=== PATIENT | female | born 1965 | race Caucasian/White ===

== ENCOUNTER → 2021-03-15 | Outpatient (CLI) | payer OTHER, SELFPAY ==
[2021-03-15 17:38] VITALS: BMI 24.7
== END | disposition home or self-care (01) ==
PROVIDERS: Visit Provider Nurse Practitioner
DX: N30.01 Acute cystitis with hematuria (principal)
CPT/HCPCS: 87086

== ENCOUNTER → 2022-05-17 | Outpatient (CLI) | payer OTHER, SELFPAY ==
[2022-05-17 22:13] LABS: Absolute Lymphocyte Count 2.16 X10^3/uL (0.83-4.51); Absolute Neutrophil Count 3.9 X10^3/uL (2.0-7.7); Basophil# 0.06 X10^3/uL; Basophil% 0.9 % (0-1); Eosinophil# 0.16 X10^3/uL; Eosinophils% 2.4 % (0-5); Hematocrit 38.7 % (37-47); Hemoglobin 12.9 g/dL (12.0-15.0); Lymphocyte # 2.16 X10^3/ul (0.83-4.51); Lymphocyte % 32.2 % (19-41); Mean Corp Hgb Conc 33.3 g/dL (32-36); Mean Corpuscular Hgb 29.5 pg (27.0-32.0); Mean Corpuscular Volume 88.6 fL (81-99); Mean Platelet Vol. 9.2 fl (6.2-12.0); Monocyte# 0.43 X10^3/uL; Monocyte% 6.4 % (0-10); NRBC Flagged by Analyzer 0 % (0-5); Neutrophil # 3.88 X10^3/uL (2.7-7.7); Platelet Count 254 K/mm3 (150-450); RBC Distribution Width CV 12.1 % (11.6-14.6); RBC Distribution Width SD 39.7 fl (35.1-43.9); Red Blood Count 4.37 M/mm3 (4.2-5.4); White Blood Count 6.7 K/mm3 (4.4-11.0)
[2022-05-17 22:33] LABS: Glucose 93 mg/dL (74-106)
[2022-05-17 22:34] LABS: ALB/GLOB Ratio 1.2 RATIO (0.9-2.4); AST(SGOT) 19 U/L (15-37); Alanine Aminotransfer ALT/SGPT 30 U/L (13-56); Albumin, Serum 3.9 g/dL (3.2-5.0); Alkaline Phosphatase 58 U/L (45-117); Anion Gap 6 (5-15); BUN 20 mg/dL (7-18); BUN/Creat Ratio 23.3 RATIO (10-20); Calcium,Total 8.9 mg/dL (8.5-10.1); Chloride 107 mmol/L (98-107); Cholesterol 190 mg/dL (200); Creatinine, Serum 0.86 mg/dL (0.55-1.02); EST Glomerular Filtration Rate 73 mL/min (>60); Est Glom Filt Rate - Afr Amer 88 mL/min (>60); Globulin 3.2 g/dL (2.2-4.2); High Density Lipoprotein 64 mg/dL; Potassium 4.8 mmol/L (3.5-5.1); Protein, Total 7.1 g/dL (6.4-8.2); Sodium Level 141 mmol/L (136-145); Thyroid Stim Hormone (TSH) 1.25 uIU/mL (0.358-3.74); Triglycerides 69 mg/dL; Very Low Density Lipoprotein 14 mg/dL (5-40)
[2022-05-19 22:18] LABS: EBV Acute VCA IgM < 36.0 U/mL (0.0-35.9); EBV Nuclear Antigen IgG 51.2 U/mL (0.0-17.9)
== END | disposition home or self-care (01) ==
PROVIDERS: PCP Nurse Practitioner; Referring Provider Nurse Practitioner; Visit Provider Nurse Practitioner
DX: R53.83 Other fatigue (principal); D64.9 Anemia, unspecified; E78.00 Pure hypercholesterolemia, unspecified; R41.840 Attention and concentration deficit
CPT/HCPCS: 80053; 80061; 84443; 85025; 86664; 86665

== ENCOUNTER → 2025-10-09 | Outpatient (CLI) | payer OTHER, SELFPAY ==
--- OUTSIDE RECORDS SUMMARY | 2025-10-09 22:45 | XMS RPT_ITS | CCD ---
Author Organization [facility] Care Team Providers Care Teen Counselor Name Role Phone Shayna Catalan Y Unavailable Shayna Catalan Y Unavailable Tim Catalania Y Unavailable Tim Catalania Y Unavailable Mandy AMBROSE, Laura Gray Unavailable Unavailable Unavailable Primary Care Provider UnavailViktoriya Seaman Unavailable Unavailable Zurdo 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Meliton BENNETT Primary Care Provide r Zurdo 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eMliton BENNETT Primary Care Provide r Stephen Madrigal MD Unavailable Zurdo 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Meliton BENNETT Primary Care Provide r SADIE ENRIQUEZ Attending UnavailMELITON Sandoval Primary Care Unavailable SADIE ENRIQUEZ Referring MELITON Espinoza Primary Care Unavailable Allergies Allergy Classification Reported Allergen(s) Allergy Type Date of Onset Reaction(s) Facility (6 sources) penicillin drug allergy 03-19-2017 [facility] Work Phone: (4 sources) Penicillins; Translations: [PENICILLINS] Drug Allergy 03-19-2017 Unknown, [facility] Work Phone: (8 sources) Penicillins Drug Allergy 03-19-2017 Unknown, [facility] Work Phone: (2 sources) Penicillins Drug Allergy 03-19-2017 Unknown, [facility] Work Phone: Medications Current Medications Medication Drug Class(es) Dates Sig (Normalized) Sig (Original) ASHWAGANDHA ROOT EXTRACT ORAL (13 sources) take 350 mg by mouth twice daily ASHWAGANDHA ROOT EXTRACT ORAL Take 350 mg by mouth twice daily. Active take 350 mg by mouth twice daily ASHWAGANDHA ROOT EXTRACT ORAL Take 350 mg by mouth twice daily. 0 Active Comment on above: Take 350 mg by mouth twice daily. beta-carotene,A,-vits C and E (ANTI-OXIDANT ORAL) (13 sources) take 1 tablet by mouth twice daily beta-carotene,A,-vit s C and E (ANTI-OXIDANT ORAL) Take 1 tablet by mouth twice daily. Active take 1 tablet by mouth twice terrance ly beta-carotene,A,-vits C and E (ANTI-OXIDANT ORAL) Take 1 tablet by mouth twice daily. 0 Active Comment on above: Take 1 tablet by frank twice daily. calcium carb/mag oxide/C/beta (CALCIUM COMPLETE ORAL) (13 sources) calcium carb/mag oxide/C/beta (CALCIUM COMPLETE ORAL) Take 1 capsule by mouth twice daily. 2.5 mcg vit d,250 mg calcium,50 mg magnesium Active calcium carb/mag oxide/C/beta (CALCIUM COMPLETE ORAL) Take 1 capsule by mouth twice daily. 2.5 mcg vit d,250 mg calcium,50 mg magnesium 0 Active Comment on above: Take 1 capsule by mo [facility] twice daily. 2.5 mcg vit d,250 mg calcium,50 mg magnesium cholecalciferol, vitamin D3, (VITAMIN D3 ORAL) (13 sources) take 2000 [IU] by mouth once daily cholecalciferol, vitamin D3, (VITAMIN D3 ORAL) Take 2,000 Units by mouth once daily. Active take 2000 [IU] by mouth once terrance ly cholecalciferol, vitamin D3, (VITAMIN D3 ORAL) Take 2,000 Units by mouth once daily. 0 Active Comment on above: Take 2,000 Units by mouth once daily. COMPOUNDED PRESCRIPTION (20 sources) COMPOUNDED PRESC RIPTION Biest 0.6mg/0.5mL cream. Apply 0.6 mL twice daily Active COMPOUNDED PRESC RIPTION Progesterone 50 mg/mL cream. Apply 0.6 mL nightly Active COMPOUNDED PRESC RIPTION Biest 0.6mg/0.5mL cream. Apply 0.6 mL twice daily 0 Active COMPOUNDED PRESC RIPTION Progesterone 50 mg/mL cream. Apply 0.6 mL nightly 0 Active Comment on above: Biest 0.6mg/0.5mL cr eam. Apply 0.6 mL twice daily Progesterone 50 mg/m L cream. Apply 0.6 mL nightly evening primrose oil (EVENING PRIMROSE ORAL) (13 sources) take 1300 mg by mouth once daily evening primrose oil (EVENING PRIMROSE ORAL) Take 1,300 mg by mouth once daily. Active take 1300 mg by mouth once daily evening primrose oil (EVENING PRIMROSE ORAL) Take 1,300 mg by mouth once daily. 0 Active Comment on above: Take 1,300 mg by frank th once daily. hydroCHLOROthiazide 25 mg oral tablet (7 sources) Thiazide Diuretic Start: 2021 take 1 tablet by mouth once daily hydroCHLOROthiazide (HYDRODIURIL, ESIDRIX) 25 mg tablet Indications: Hypercalciuria Take 1 tablet by mouth once daily. 30 tablet 11 05/05/2022 Active Comment on above: Take 1 tablet by frank th once daily. hydrOXYzine hydrochloride 10 mg oral tablet (13 sources) Antihistamine Start: 2020 hydrOXYzine HCl (ATARAX) 10 mg tablet Take by mouth four times daily as needed for anxiety. 3-4 times daily 12/23/2020 Active Comment on above: Take by mouth four t imes daily as needed for anxiety. 3-4 times daily iv contrast (will be provided with radiology test) (9 sources) Start: 2023 iv contrast (will be provided with radiology test) Indications: Pancreas cyst (HCC) MRI PANC/BRET Inject, intravenously, once for 1 dose. No IV access, insert saline lock prior to the beginning of sedation, infusion, injection of imaging exam. Discontinue saline lock post exam. If Pt. has a central line or IVAD, may access for administration according to line specific nursing protocol. Once exam is complete flush line and de-access according to line specific nursing protocol in the MR contrast administration guidelines link. 1 Each 10/30/2023 Active Start: 10-30-2023 iv contrast (w ill be provided with radiology test) Indications: Pancreas cyst MRI PANC/BRET Inject, intravenously, once for 1 dose. No IV access, insert saline lock prior to the beginning of sedation, infusion, injection of imaging exam. Discontinue saline lock post exam. If Pt. has a central line or IVAD, may access for administration according to line specific nursing protocol. Once exam is complete flush line and de-access according to line specific nursing protocol in the MR contrast administration guidelines link. 1 Each 10/30/2023 Active Start: 10-15-2023 iv contrast (w ill be provided with radiology test) Indications: Pancreas cyst (HCC) MRI PANC/BRET Inject, intravenously, once for 1 dose. No IV access, insert saline lock prior to the beginning of sedation, infusion, injection of imaging exam. Discontinue saline lock post exam. If Pt. has a central line or IVAD, may access for administration according to line specific nursing protocol. Once exam is complete flush line and de-access according to line specific nursing protocol in the MR contrast administration guidelines link. 1 Each 10/15/2023 Active Start: 10-15-2023 iv contrast (w ill be provided with radiology test) Indications: Pancreas cyst MRI PANC/BRET Inject, intravenously, once for 1 dose. No IV access, insert saline lock prior to the beginning of sedation, infusion, injection of imaging exam. Discontinue saline lock post exam. If Pt. has a central line or IVAD, may access for administration according to line specific nursing protocol. Once exam is complete flush line and de-access according to line specific nursing protocol in the MR contrast administration guidelines link. 1 Each 10/15/2023 Active Start: 10-15-2023 iv contrast (w ill be provided with radiology test) Indications: Pancreas cyst MRI PANC/BRET Inject, intravenously, once for 1 dose. No IV access, insert saline lock prior to the beginning of sedation, infusion, injection of imaging exam. Discontinue saline lock post exam. If Pt. has a central line or IVAD, may access for administration according to line specific nursing protocol. Once exam is complete flush line and de-access according to line specific nursing protocol in the MR contrast administration guidelines link. 1 Each 0 10/15/2023 Active Comment on above: MRI PANC/BRET Inject, intravenously, once for 1 dose. No IV access, insert saline lock prior to the beginning of sedation, infusion, injection of imaging exam. Discontinue saline lock post exam. If Pt. has a central line or IVAD, may access for administration according to line specific nursing protocol. Once exam is complete flush line and de-access according to line specific nursing protocol in the MR contrast administration guidelines link. lactobacillus acidophilus [id number] unt oral capsule (13 sources) take 1 capsule by mouth once daily Lactobacillus acidophilus 10 billion cell cap Take 1 capsule by mouth once daily. Active Comment on above: Take 1 capsule by mo [facility] once daily. MEDICATION, NON-DATABASE (13 sources) take 250 mg by mouth once daily MEDICATION, NON-DATABASE Take 250 mg by mouth once daily. provex -plus grape seed extract,gingko biloba Active take 250 mg by mouth once daily MEDICATION, NON-DATABASE Take 250 mg by mouth once daily. provex -plus grape seed extract,gingko biloba 0 Active Comment on above: Take 250 mg by mouth once daily. provex -plus grape seed extract,gingko biloba MULTI-VITAMIN ORAL (13 sources) take 1 tablet by mouth twice daily MULTI-VITAMIN ORAL Take 1 tablet by mouth twice daily. Active take 1 tablet by mouth twice terrance ly MULTI-VITAMIN ORAL Take 1 tablet by mouth twice daily. 0 Active Comment on above: Take 1 tablet by frank th twice daily. OMEGA 0-KUC-RWM-FISH OIL ORAL (13 sources) take 2 capsules by mouth twice daily OMEGA 1-QPL-KAE-FISH OIL ORAL Take 2 capsules by mouth twice daily. 660 DHA and 720 EPA Active take 2 capsules by mouth twice d aily OMEGA 7-RIH-TVF-FISH OIL ORAL Take 2 capsules by mouth twice daily. 660 DHA and 720 EPA 0 Active Comment on above: Take 2 capsules by [facility] twice daily. 660 DHA and 720 EPA oxybutynin chloride 5 mg oral tablet (9 sources) Cholinergic Muscarinic Antagonist Start: 05-19-20 21 take 1 tablet by mouth every eight hours as needed oxybutynin (DITROPAN) 5 mg tablet Take 1 tablet by mouth three times daily as needed (bladder spasms) for up to 14 days. 42 tablet 05/19/2021 5:28 PM EDT 05/19/2021 Active Comment on above: Take 1 tablet by frank th three times daily as needed (bladder spasms) for up to 14 days. phenazopyridine hydrochloride 200 mg oral tablet (7 sources) Start: 04-27-20 22 take 1 tablet by mouth every eight hours as needed phenazopyridine (PYRIDIUM) 200 mg tablet Take 1 tablet by mouth three times daily as needed. 9 tablet 04/27/2022 Active Comment on above: Take 1 tablet by frank th three times daily as needed. prasterone, DHEA, (DHEA ORAL) (13 sources) prasterone, DHEA , (DHEA ORAL) Dissolve 5 mg under the tongue once daily. One half tab Active prasterone, DHEA , (DHEA ORAL) Dissolve 5 mg under the tongue once daily. One half tab 0 Active Comment on above: Dissolve 5 mg under the tongue once daily. One half tab tamsulosin hydrochloride 0.4 mg oral capsule (12 sources) alpha-Adrenergic Leyla Start: take 1 capsule by mouth once daily at bedtime tamsulosin (FLOMAX) 0.4 mg Take 1 capsule by mouth daily at bedtime. 14 capsule 04/27/2022 Active Start: 04-07-2021 take 1 capsule by mo uth once daily tamsulosin (FLOMAX) 0.4 mg Indications: Kidney stone Take 1 capsule by mouth once daily. 30 capsule 2 04/07/2021 Active Comment on above: Take 1 capsule by mo uth once daily. Take 1 capsule by mo uth daily at bedtime. vitamin b complex capsule (6 sources) take 1 capsule by mouth once daily vitamin b complex capsule Take 1 capsule by mouth once daily. Methyl B complex Active take 1 capsule by mouth once terrance ly vitamin b complex capsule Take 1 capsule by mouth once daily. Methyl B complex 0 Active Comment on above: Take 1 capsule by mo uth once daily. Methyl B complex Completed/Discontinued Medications Medication Drug Class(es) Dates Sig (Normalized) Sig (Original) bi-est (estriol 80% estradiol 20%)/ progesterone 1.25-50 mg/mL topical cream (CPD) (5 sources) Start: 03-19-2017 bi-est (estriol 80% estradiol 20%)/ progesterone 1.25-50 mg/mL topical cream (CPD) BIEST/PROGESTERONE CREA as directed ESTRADIOL-ESTRIOL- PROGESTERONE [id number] Laura Galvan RN 0 03/19/2017 Active Comment on above: BIEST/PROGESTERONE C ESTIVEN as directed [id number] Laura Galvan RN escitalopram 5 mg oral tablet (5 sources) Serotonin Reuptake Inhibitor take 0.25 tablet by mouth once daily escitalopram oxalate (ESCITALOPRAM) 5 mg tablet Take 5 mg by mouth once daily. 11/01 tab lexapro 0 Active Comment on above: Take 5 mg by mouth o nce daily. 11/01 tab lexapro [id number] GESTERONE (5 sources) Start: 03-19-2017 BIEST/PROGESTERONE CREA as directed ESTRADIOL-ESTRIOL- PROGESTERONE [id number] Laura Galvan RN [id number] GESTERONE (1 source) Start: 03-19-2017 BIEST/PROGESTERONE CREA as directed ESTRADIOL-ESTRIOL- PROGESTERONE [id number] Laura Galvan RN levETIRAcetam 500 mg oral tablet (3 sources) Start: 07-30-2018 take 1 tablet by mouth twice daily levETIRAcetam (KEPPRA) 500 mg tablet Take 1 tablet by mouth twice daily for 6 days. 11 tablet 0 07/30/2018 Active Comment on above: Take 1 tablet by frank th twice daily for 6 days. nortriptyline 25 mg oral capsule (3 sources) Tricyclic Antidepressant Start: 01-14-2019 take 1 capsule by mouth once daily at bedtime nortriptyline (PAMELOR) 25 mg capsule Take 1 capsule by mouth daily at bedtime. 30 capsule 3 01/14/2019 Active Comment on above: Take 1 capsule by mo uth daily at bedtime. progesterone (4 sources) Progesterone Start: 03-21-2017 EC-RX PROGESTERONE 10 % CREA 25 mg/0.5 ml topically as directed PROGESTERONE MICRONIZED [id number] Tim Santamaria MD sulfamethoxazole 800 mg / trimethoprim 160 mg oral tablet (10 sources) Dihydrofolate Reductase Inhibitor Antibacterial, Sulfonamide Antimicrobial Start: 03-15-2021 sulfamethoxazole-t rimethoprim (BACTRIM DS,SEPTRA DS) 800-160 mg per tablet Take by mouth. 0 03/15/2021 Active Start: 03-15-2021 take 1 tablet by frank th twice daily sulfamethoxazole-trimethoprim (BACTRIM DS,SEPTRA DS) 800-160 mg per tablet TAKE 1 TABLET BY MOUTH TWICE A DAY FOR 10 DAYS FOR HEMATURIA 0 03/15/2021 Active Comment on above: Take by mouth. TAKE 1 TABLET BY FRANK TH TWICE A DAY FOR 10 DAYS FOR HEMATURIA vitamin b complex (VITAMINS B COMPLEX) capsule (7 sources) take 1 capsule by mouth once daily vitamin b complex (VITAMINS B COMPLEX) capsule Take 1 capsule by mouth once daily. Methyl B complex 0 Active Comment on above: Take 1 capsule by mo uth once daily. 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] 10-15-2023 Chronic Delirium, dementia, and amnestic and other cognitive disorders (13 sources) Postconcussion syndrome; Translations: [Postconcussional syndrome] Onset: 01-17-2019 01-17-2019 Chronic Pancreatic disorders (not diabetes) (15 sources) Cyst of pancreas; Translations: [Cyst of pancreas] 01-09-2019 Episodic Past or Other Problems Problem Classification Problem Date Documented Date Episodic/Chronic Calculus of urinary tract (20 sources) Kidney stone; Translations: [Calculus of kidney] Onset: 05-25-2021 10-10-2021 Episodic Cardiac dysrhythmias (6 sources) Palpitations; Translations: [Palpitations] Onset: 03-19-2017 03-19-2017 Episodic Conditions associated with dizziness or vertigo (13 sources) Dizziness; Translations: [Dizziness and giddiness] Onset: 01-17-2019 01-17-2019 Episodic Genitourinary symptoms and ill-defined conditions (20 sources) Hypercalciuria; Translations: [Hypercalciuria] Onset: 10-10-2021 10-10-2021 Episodic Headache; including migraine (13 sources) Headache; Translations: [Post-traumatic headache, unspecified, not intractable] Onset: 01-17-2019 01-17-2019 Episodic Intracranial injury (13 sources) Traumatic subarachnoid hemorrhage with loss of consciousness; Translations: [Traumatic subarachnoid hemorrhage with loss of consciousness of 30 minutes or less, initial encounter] Onset: 07-30-2018 07-30-2018 Episodic Nonspecific chest pain (6 sources) Chest pain; Translations: [Chest pain, unspecified] Onset: 03-19-2017 03-19-2017 Episodic Other injuries and conditions due to external causes (13 sources) Traumatic injury; Translations: [Injury, unspecified, initial encounter] Onset: 07-29-2018 07-30-2018 Episodic Other nervous system disorders (13 sources) Disorganized thinking; Translations: [Other symptoms and signs involving cognitive functions and awareness] Onset: 01-17-2019 01-17-2019 Episodic Results Test Name Value Interpretation Reference Range Facility [facility] 04-03-2025 CNOV Office Visit (AKURFL ) -- DIMITRI MOREAU V ([id number]) 1965 F Date Time Provider Department 04/03/25 9:00 AM SADIE ENRIQUEZ During your visit today, we recorded the following information about you: Pulse Height 67/minute 1.626 m Sadie Enriquez MD 04/03/2025 1:40 PM Signed ESTABLISHED PATIENT OFFICE VISIT PATIENT INFO: Dimitri Moreau 59 year old HPI 04/03/2025 CC: Stone Presents with and no feeling of passing stones since I saw her and no flank pain Urine today negative and KUB may be stable stone lower pole left kidney Denies gross hematuria or dysuria After discussion she just wants to follow-up 2 years with KUB Past Urology Hx: 11/05/2023 CC: stone Dipstick urine negative today and she has not felt like passing stones since I saw her last Presents with her KUB shows suspected presence of 4 mm lower pole stone but CT in 2018 showed that also She is satisfied just follow-up 12 months with KUB and she pushes her lemonade ;; 11/06/2022 CC: stone Drink a lot of lemon juice and decided not to start hydrochlorothiazide which we reviewed once again Dipstick urine negative KUB May be punctate lower pole left renal stone She is comfortable just checking KUB in 12 months and does indicate she will get periodic MRI for other issues to be once every year and a half now 05/05/2022 CC: stone Stent not as bothersome as it was last time Status post laser lithotripsy of right ureteral calculus and presents for stent removal today Once again discussed history of elevated urine calcium on Litholink and stone analysis showed calcium oxalate and calcium phosphate mixed stone She just wants the prescription for the hydrochlorothiazide and will decide whether she wants to start it Printed out oxalate food list and stone precaution list She just wants KUB 6 months 04/10/2022 CC: stone Patient has not been doing the lemon and once again talked about her 24-hour urine study results showing Elevated urine calcium and oxalate Presents with her today 3 weeks ago some pink urine but just wants and no flank pain whatsoever KUB shows calcification along the course of mid right ureter so possibility ureteral stone She is getting MRI in [place] next week to follow her pancreas issue like we knew before and she will call when she does that so we can check results She understands she might still need CT scan Might need ureteroscopy and laser and stent on the right Once again discussed hydrochlorothiazide options 10/10/2021 CC: stone Months with her and she did her KUB which does not show any significant stone growth Urine today is negative Litholink study shows elevated urine calcium and oxalate but citrate levels normal Suggested starting hydrochlorothiazide given her history She is not interested in hydrochlorothiazide at all and will push lemonade rather than Urocit-K Discuss KUB in 6 months but she indicates she gets MRI every year and will be getting one in February so she will do that before sees me and order in for KUB to get one if she decides 06/06/2021 CC: stone Presents for cystoscopy and stent removal x2 today Status post bilateral ureteroscopy and staged procedure for her upper tract stones proved to be calcium phosphate mostly Stents have been troublesome for the patient and hard for her to sit too long and lots of urine frequency Denies fevers or chills Stents removed today She will get Litholink study and KUB prior to seeing me in 7 weeks April 28, 2021-telephone call by me to patient- P: cysto, bilat ureteroscopy, laser, stents, possible ESWL then cysto, bilat ureteroscopy, laser, stents 1 week later and can be HW 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 Ramsey- 56 year old female who presents refer for kidney stone. Had routine mri for pancreatic cyst. Incidentally found to have 8mm L UPJ calc with hydro and 1.0 cm r renal pelvis calc. Never had stones before. Asymptomatic other than microhematuria. 04/26/21 - ct shows 8mm L UPJ calc. 16mm r renal pelvis calc. Other small bilateral renal calc. Options discussed. 1500+ HU's RADS: April 01, [id number] of stool and bowel gas and maybe 3-4 mm calcification more per area left kidney October 17, 2023-MRI pancreas-possibility 2 mm calcification upper pole right kidney area or could just be volume averaging artifact October 17, 2023-KUB-suspect 4.6 mm lower pole left renal calculus November 01, [id number] left renal calculus over lower pole May 05, 2022-cystoscopy, stent removal April 27, 2022-stone analysis-60% calcium oxalate and 40% calcium phosphate April 27, 2022-right ureteroscopy with laser and stent April 19, 2022-MRI abdomen-new mild right sided hydronephrosis March 29 (more content not included)... Normal [facility] UA DIP, URINE (POC)on 2024 BILIRUBIN UA (POCT) Negative Negative [facility] CLARITY UA (POCT) Clear [facility] COLOR UA (POCT) Yellow [facility] GLUCOSE UA (POCT) Negative Negative mg/dL [facility] Hemoglobin Ql (U) Negative Negative [facility] KETONE UA (POCT) Negative Negative mg/dL [facility] LEUKOCYTES UA (POCT) Negative Negative [facility] NITRITE UA (POCT) Negative Negative [facility] PH UA (POCT) 7.5 4.5 - 8.0 [facility] Protein Ql (U) Negative Negative mg/dL [facility] SPECIFIC GRAVITY UA (POCT) 1.01 1.005 - 1.030 [facility] UROBILINOGEN UA (POCT) 0.2 Normal E.U./dL [facility] Location:[facility], [address] [place] [address], [address] [place] [address] POINT OF CARE [facility] XR ABDOMEN 1V SUPINEon 04-01 XR ABDOMEN 1V SUPINE * * *Final Report* * * DATE OF EXAM: Apr 01 2025 3:53PM LDX 5289 - XR ABDOMEN 1V SUPINE / PROCEDURE REASON: Kidney stone * * * * Physician Interpretation * * * * EXAMINATION: ABDOMINAL RADIOGRAPH Clinical History: Kidney stone M: XC1_4 Comparison: 10/17/2023 TECHNIQUE: Single view(s) of the abdomen RESULT: Lines, tubes, and devices: None are seen. Bowel Gas Pattern: Large amount of stool seen in the colon. No small bowel obstruction seen Calcifications: 4 mm calcific density lower pole region of left kidney. Other: No additional findings IMPRESSION: Left renal stone Claim Analyst: LINDA Transcribe Date/Time: Apr 04 2025 6:39A Dictated by : JOSE ANGEL MUÑOZ MD This examination was interpreted and the report reviewed and electronically signed by: JOSE ANGEL MUÑOZ MD on Apr 04 2025 6:40AM EST [id number] Normal [facility] CNPNon 12-08-2024 CNPN Telephone (UROLAE) -- DIMITRI MOREAU V ([id number]) 1965 F Date Time Provider Department 12/08/24 SADIE ENRIQUEZ During your visit today, we recorded the following information about you: Allergies As of Date: 12/08/2024 Noted Allergy Reaction PENICILLINS 03/19/2017 16 - Unknown 2 - Rash Date Reviewed: 11/05/2023 Reviewed by: Sadie Enriquez MD - Fully Assessed Primary Visit Diagnosis:Kidney stone [N20.0] Order(s):XR ABDOMEN 1V SUPINE [[id number]] Order #: [id number] FUTURE Prescriptions as of 12/08/2024 - iv contrast (will be provided with radiology test) MRI PANC/BRET Inject, intravenously, once for 1 dose. No IV access, insert saline lock prior to the beginning of sedation, infusion, injection of imaging exam. Discontinue saline lock post exam. If Pt. has a central line or IVAD, may access for administration according to line specific nursing protocol. Once exam is complete flush line and de-access according to line specific nursing protocol in the MR contrast administration guidelines link. - iv contrast (will be provided with radiology test) MRI PANC/BRET Inject, intravenously, once for 1 dose. No IV access, insert saline lock prior to the beginning of sedation, infusion, injection of imaging exam. Discontinue saline lock post exam. If Pt. has a central line or IVAD, may access for administration according to line specific nursing protocol. Once exam is complete flush line and de-access according to line specific nursing protocol in the MR contrast administration guidelines link. - hydroCHLOROthiazide (HYDRODIURIL, ESIDRIX) 25 mg tablet Take 1 tablet by mouth once daily. - tamsulosin (FLOMAX) 0.4 mg Take 1 capsule by mouth daily at bedtime. - phenazopyridine (PYRIDIUM) 200 mg tablet Take 1 tablet by mouth three times daily as needed. - MEDICATION, NON-DATABASE Take 250 mg by mouth once daily. provex -plus grape seed extract,gingko biloba - oxybutynin (DITROPAN) 5 mg tablet Take 1 tablet by mouth three times daily as needed (bladder spasms) for up to 14 days. - cholecalciferol, vitamin D3, (VITAMIN D3 ORAL) Take 2,000 Units by mouth once daily. - vitamin b complex capsule Take 1 capsule by mouth once daily. Methyl B complex - ASHWAGANDHA ROOT EXTRACT ORAL Take 350 mg by mouth twice daily. - hydrOXYzine HCl (ATARAX) 10 mg tablet Take by mouth four times daily as needed for anxiety. 3-4 times daily - calcium carb/mag oxide/C/beta (CALCIUM COMPLETE ORAL) Take 1 capsule by mouth twice daily. 2.5 mcg vit d,250 mg calcium,50 mg magnesium - evening primrose oil (EVENING PRIMROSE ORAL) Take 1,300 mg by mouth once daily. - OMEGA 4-HRS-WUY-FISH OIL ORAL Take 2 capsules by mouth twice daily. 660 DHA and 720 EPA - MULTI-VITAMIN ORAL Take 1 tablet by mouth twice daily. - Lactobacillus acidophilus 10 billion cell cap Take 1 capsule by mouth once daily. - beta-carotene,A,-vits C and E (ANTI-OXIDANT ORAL) Take 1 tablet by mouth twice daily. - prasterone, DHEA, (DHEA ORAL) Dissolve 5 mg under the tongue once daily. One half tab - COMPOUNDED PRESCRIPTION Biest 0.6mg/0.5mL cream. Apply 0.6 mL twice daily - COMPOUNDED PRESCRIPTION Progesterone 50 mg/mL cream. 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 Telephone ([id number]) -- DIMITRI MOREAU V ([id number]) 1965 F Date Time Provider Department 09/15/24 CHARISMA GUO3 During your visit today, we recorded the following information about you: Halie Rodney LPN 09/15/2024 10:58 AM Signed Called patient, no answer, left VM to call office to go over upcoming MRI appointment and schedule follow up with Charisma Guo PA-C or Dr. Morrell. Halie Pennintgon LPN, LPN 09/24/2024 9:36 AM Signed Called patient, no answer, left VM to call office to go over MRI and follow up appointment. Mailed appointment information to patient. Dorys Caballero LPN 09/24/2024 1:13 PM Signed Patient called back in cancelled her appointments, per patients she was told at last OV that she did not need to come back for 18 months and does not wish to get anything done at this time, would rather wait till next year. Patient asked to be scheduled in March of 2025. Informed patient I would talk to provider and call if anything changes and they want her in sooner. Lina Allergies As of Date: 09/15/2024 Noted Allergy Reaction PENICILLINS 03/19/2017 16 - Unknown 2 - Rash Date Reviewed: 11/05/2023 Reviewed by: Sadie Enriquez MD - Fully Assessed Reason for Visit: Appointment [[id number]] Prescriptions as of 09/24/2024 - iv contrast (will be provided with radiology test) MRI PANC/BRET Inject, intravenously, once for 1 dose. No IV access, insert saline lock prior to the beginning of sedation, infusion, injection of imaging exam. Discontinue saline lock post exam. If Pt. has a central line or IVAD, may access for administration according to line specific nursing protocol. Once exam is complete flush line and de-access according to line specific nursing protocol in the MR contrast administration guidelines link. - iv contrast (will be provided with radiology test) MRI PANC/BRET Inject, intravenously, once for 1 dose. No IV access, insert saline lock prior to the beginning of sedation, infusion, injection of imaging exam. Discontinue saline lock post exam. If Pt. has a central line or IVAD, may access for administration according to line specific nursing protocol. Once exam is complete flush line and de-access according to line specific nursing protocol in the MR contrast administration guidelines link. - hydroCHLOROthiazide (HYDRODIURIL, ESIDRIX) 25 mg tablet Take 1 tablet by mouth once daily. - tamsulosin (FLOMAX) 0.4 mg Take 1 capsule by mouth daily at bedtime. - phenazopyridine (PYRIDIUM) 200 mg tablet Take 1 tablet by mouth three times daily as needed. - MEDICATION, NON-DATABASE Take 250 mg by mouth once daily. provex -plus grape seed extract,gingko biloba - oxybutynin (DITROPAN) 5 mg tablet Take 1 tablet by mouth three times daily as needed (bladder spasms) for up to 14 days. - cholecalciferol, vitamin D3, (VITAMIN D3 ORAL) Take 2,000 Units by mouth once daily. - vitamin b complex capsule Take 1 capsule by mouth once daily. Methyl B complex - ASHWAGANDHA ROOT EXTRACT ORAL Take 350 mg by mouth twice daily. - hydrOXYzine HCl (ATARAX) 10 mg tablet Take by mouth four times daily as needed for anxiety. 3-4 times daily - calcium carb/mag oxide/C/beta (CALCIUM COMPLETE ORAL) Take 1 capsule by mouth twice daily. 2.5 mcg vit d,250 mg calcium,50 mg magnesium - evening primrose oil (EVENING PRIMROSE ORAL) Take 1,300 mg by mouth once daily. - OMEGA 7-VAC-SQG-FISH OIL ORAL Take 2 capsules by mouth twice daily. 660 DHA and 720 EPA - MULTI-VITAMIN ORAL Take 1 tablet by mouth twice daily. - Lactobacillus acidophilus 10 billion cell cap Take 1 capsule by mouth once daily. - beta-carotene,A,-vits C and E (ANTI-OXIDANT ORAL) Take 1 tablet by mouth twice daily. - prasterone, DHEA, (DHEA ORAL) Dissolve 5 mg under the tongue once daily. One half tab - COMPOUNDED PRESCRIPTION Biest 0.6mg/0.5mL cream. Apply 0.6 mL twice daily - COMPOUNDED PRESCRIPTION Progesterone 50 mg/mL cream. 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] 10/10/2021 Hyperoxaluria [R82.992] 10/10/2021 Encounter Status:Closed by HALIE RODNEY on 09/24/24 Normal [facility] UA DIP, URINE (POC)on 2022 BILIRUBIN UA (POCT) Negative Negative [facility] CLARITY UA (POCT) [facility] COLOR UA (POCT) Yellow [facility] GLUCOSE UA (POCT) Negative Negative mg/dL [facility] HEMOGLOBIN/BLOOD UA (POCT) Negative Negative [facility] KETONE UA (POCT) Negative Negative mg/dL [facility] LEUKOCYTES UA (POCT) Negative Negative [facility] NITRITE UA (POCT) Negative Negative [facility] PH UA (POCT) 7.5 4.5 - 8.0 [facility] Protein Ql (U) Negative Negative mg/dL [facility] SPECIFIC GRAVITY UA (POCT) 1.015 1.005 - 1.030 [facility] UROBILINOGEN UA (POCT) 0.2 E.U./dL Normal E.U./dL [facility] EBV Acute Prof IgG / IgMon 0 - EB Ab VCA, IgG 57.0 U/mL High 0.0-17.9 [facility] Comment on above: Result Comment: Nega tive <18.0 Equivocal 18.0 - 21.9 Positive >21.9 Performed By: #### L 501.9520, L3100.5850, L500.4050, L100.0100, L500.4100 #### [facility] [address] [place], [place], [id number] EBV Ab VCA, IgM < 36.0 Normal 0.0-35.9 [facility] Comment on above: Result Comment: Nega tive <36.0 Equivocal 36.0 - 43.9 Positive >43.9 Performed By: #### L 501.9520, L3100.5850, L500.4050, L100.0100, L500.4100 #### [facility] [address] [place], [place], [id number] EBV NuAg Ab,IgG 51.2 U/mL High 0.0-17.9 [facility] Comment on above: Result Comment: Nega tive <18.0 Equivocal 18.0 - 21.9 Positive >21.9 Performed By: #### L 501.9520, L3100.5850, L500.4050, L100.0100, L500.4100 #### [facility] [address] [place], [place], [id number] INTERPRETATION Comment Normal . [facility] Comment on above: Result Comment: EBV Interpretation Chart Mckeon: Antibody Present + Antibody Absent - Interpretation VCA-IgM VCA-IgG EBNA-IgG No previous infection/ - - - Susceptible Primary infection (new + + - or recent) Past Infection +or- + + See comment below* + - - *Results indicate infection with EBV at some time however cannot predict the timing of the infection since antibodies to EBNA usually develop after primary infection or, alternatively, approximately 5-10% of patients with EBV never develop antibodies to EBNA. Performed at: [address] [id number] Dental Therapist: Moe Ayala PhD, Phone: [phone] Performed By: #### L 501.9520, L3100.5850, L500.4050, L100.0100, L500.4100 #### [facility] [address] [facility], [address] CBC W/Diff, Automatedon 07-2 -2021 Absolute Lymph 2.16 X10 3/uL Normal 0.83-4.51 [facility] Comment on above: Performed By: #### L 501.9520, L3100.5850, L500.4050, L100.0100, L500.4100 #### [facility] [address] [place], [address] Absolute Neut 3.9 X10 3/uL Normal 2.0-7.7 [facility] Comment on above: Performed By: #### L 501.9520, L3100.5850, L500.4050, L100.0100, L500.4100 #### [facility] [address] [place], [address] Basophils/100 WBC (Bld) 0.9 % Normal 0-1 [facility] Comment on above: Performed By: #### L 501.9520, L3100.5850, L500.4050, L100.0100, L500.4100 #### [facility] [address] [place], [address] Eosinophils/100 WBC (Bld) 2.4 % Normal 0-5 [facility] Comment on above: Performed By: #### L 501.9520, L3100.5850, L500.4050, L100.0100, L500.4100 #### [facility] [address] [place], [address] Erythrocyte distribution width (RBC) [Ratio] 12.1 % Normal 11.6-14.6 [facility] Comment on above: Performed By: #### L 501.9520, L3100.5850, L500.4050, L100.0100, L500.4100 #### [facility] [address] [place], [address] Hematocrit (Bld) [Volume fraction] 38.7 % Normal 37-47 [facility] Comment on above: Performed By: #### L 501.9520, L3100.5850, L500.4050, L100.0100, L500.4100 #### [facility] [address] [place], [address] Hemoglobin (Bld) [Mass/Vol] 12.9 g/dL Normal 12.0-15.0 [facility] Comment on above: Performed By: #### L 501.9520, L3100.5850, L500.4050, L100.0100, L500.4100 #### [facility] [address] [place], [address] IG% 0.100 Normal 0.0-0.9 [facility] Comment on above: Result Comment: IG% - Immature Granulocytes (promyelocytes, myelocytes and metamyelocytes) > 1% indicates that a LEFT SHIFT is Present. Performed By: #### L 501.9520, L3100.5850, L500.4050, L100.0100, L500.4100 #### [facility] [address] [place], [address] Lymphocytes/100 WBC (Bld) 32.2 % Normal 19-41 [facility] Comment on above: Performed By: #### L 501.9520, L3100.5850, L500.4050, L100.0100, L500.4100 #### [facility] [address] [place], [address] MCH (RBC) [Entitic mass] 29.5 pg Normal 27.0-32.0 [facility] Comment on above: Performed By: #### L 501.9520, L3100.5850, L500.4050, L100.0100, L500.4100 #### [facility] [address] [place], [address] MCHC (RBC) [Mass/Vol] 33.3 g/dL Normal 32-36 [facility] Comment on above: Performed By: #### L 501.9520, L3100.5850, L500.4050, L100.0100, L500.4100 #### [facility] [address] [place], [address] MCV (RBC) [Entitic vol] 88.6 fL Normal 81-99 [facility] Comment on above: Performed By: #### L 501.9520, L3100.5850, L500.4050, L100.0100, L500.4100 #### [facility] [address] [place], [address] Monocytes/100 WBC (Bld) 6.4 % Normal 0-10 [facility] Comment on above: Performed By: #### L 501.9520, L3100.5850, L500.4050, L100.0100, L500.4100 #### [facility] [address] [place], [address] Neutrophils/100 WBC (Bld) 58.0 % Normal 47-70 [facility] Comment on above: Performed By: #### L 501.9520, L3100.5850, L500.4050, L100.0100, L500.4100 #### [facility] [address] [place] [place], [address] Nucleated RBC (Bld) [#/Vol] 0 10*3/uL Normal 0-5 [facility] Comment on above: Performed By: #### L 501.9520, L3100.5850, L500.4050, L100.0100, L500.4100 #### [facility] [address] [place], [address] Platelet mean volume (Bld) [Entitic vol] 9.2 fL Normal 6.2-12.0 [facility] Comment on above: Performed By: #### L 501.9520, L3100.5850, L500.4050, L100.0100, L500.4100 #### [facility] [address] [place], [address] Platelets (Bld) [#/Vol] 254 10*3/uL Normal 150-450 [facility] Comment on above: Performed By: #### L 501.9520, L3100.5850, L500.4050, L100.0100, L500.4100 #### [facility] [address] [place], [address] RBC (Bld) [#/Vol] 4.37 10*6/uL Normal 4.2-5.4 [facility] Comment on above: Performed By: #### L 501.9520, L3100.5850, L500.4050, L100.0100, L500.4100 #### [facility] [address] [place], [address] RDW SD 39.7 fl Normal 35.1-43.9 [facility] Comment on above: Performed By: #### L 501.9520, L3100.5850, L500.4050, L100.0100, L500.4100 #### [facility] [address] [place], [address] WBC (Bld) [#/Vol] 6.7 10*3/uL Normal 4.4-11.0 [facility] Comment on above: Performed By: #### L 501.9520, L3100.5850, L500.4050, L100.0100, L500.4100 #### [facility] [address] [place], [address] Comprehensive Metabolic Prof [facility] 05-18-2022 Albumin [Mass/Vol] 3.9 g/dL Normal 3.2-5.0 [facility] Comment on above: Performed By: #### L 501.9520, L3100.5850, L500.4050, L100.0100, L500.4100 #### [facility] [address] [place], [address] Albumin/Globulin [Mass ratio] 1.2 {ratio} Normal 0.9-2.4 [facility] Comment on above: Performed By: #### L 501.9520, L3100.5850, L500.4050, L100.0100, L500.4100 #### [facility] [address] [place], [address] ALK P 58 U/L Normal 45-117 [facility] Comment on above: Performed By: #### L 501.9520, L3100.5850, L500.4050, L100.0100, L500.4100 #### [facility] [address] [place], [address] ALT [Catalytic activity/Vol] 30 U/L Normal 13-56 [facility] Comment on above: Performed By: #### L 501.9520, L3100.5850, L500.4050, L100.0100, L500.4100 #### [facility] [address] [place], [address] AST [Catalytic activity/Vol] 19 U/L Normal 15-37 [facility] Comment on above: Performed By: #### L 501.9520, L3100.5850, L500.4050, L100.0100, L500.4100 #### [facility] [address] [place], [address] Bilirubin [Mass/Vol] 0.60 mg/dL Normal 0.20-1.00 [facility] Comment on above: Result Comment: For patients on eltrombopag therapy, use of Dimension [place] TBIL is not recommended. Performed By: #### L 501.9520, L3100.5850, L500.4050, L100.0100, L500.4100 #### [facility] [address] [place], [address] BUN/CRE 23.3 RATIO High 10-20 [facility] Comment on above: Performed By: #### L 501.9520, L3100.5850, L500.4050, L100.0100, L500.4100 #### [facility] [address] [place], [address] CA,Total 8.9 mg/dL Normal 8.5-10.1 [facility] Comment on above: Performed By: #### L 501.9520, L3100.5850, L500.4050, L100.0100, L500.4100 #### [facility] [address] [place], [address] Chloride [Moles/Vol] 107 mmol/L Normal 98-107 [facility] Comment on above: Performed By: #### L 501.9520, L3100.5850, L500.4050, L100.0100, L500.4100 #### [facility] [address] [place], [address] CO2 [Moles/Vol] 28.0 mmol/L Normal 21.0-32.0 [facility] Comment on above: Performed By: #### L 501.9520, L3100.5850, L500.4050, L100.0100, L500.4100 #### [facility] [address] [place], [address] Creatinine [Mass/Vol] 0.86 mg/dL Normal 0.55-1.02 [facility] Comment on above: Result Comment: The validity of the calculated GFR GFRAA in patients over 70 years has not been determined. Clinical correlation is essential. Performed By: #### L 501.9520, L3100.5850, L500.4050, L100.0100, L500.4100 #### [facility] [address] [place], [address] EST GFR - AA 88 mL/min Normal >60 [facility] Comment on above: Result Comment: Afri can [place] GFR Calc Performed By: #### L 501.9520, L3100.5850, L500.4050, L100.0100, L500.4100 #### [facility] [address] [place], [address] GAP 6 Normal 5-15 [facility] Comment on above: Performed By: #### L 501.9520, L3100.5850, L500.4050, L100.0100, L500.4100 #### [facility] [address] [place], [address] GFR/1.73 sq M.predicted among non-blacks MDRD (S/P/Bld) [Vol rate/Area] 73 mL/min/{1.73_m2} Normal >60 [facility] Comment on above: Result Comment: Non- GFR Calc Performed By: #### L 501.9520, L3100.5850, L500.4050, L100.0100, L500.4100 #### [facility] [address] [place], [address] Globulin (S) [Mass/Vol] 3.2 g/dL Normal 2.2-4.2 [facility] Comment on above: Performed By: #### L 501.9520, L3100.5850, L500.4050, L100.0100, L500.4100 #### [facility] [address] [place], [address] Potassium [Moles/Vol] 4.8 mmol/L Normal 3.5-5.1 [facility] Comment on above: Performed By: #### L 501.9520, L3100.5850, L500.4050, L100.0100, L500.4100 #### [facility] [address] [place], [address] Sodium [Moles/Vol] 141 mmol/L Normal 136-145 [facility] Comment on above: Performed By: #### L 501.9520, L3100.5850, L500.4050, L100.0100, L500.4100 #### [facility] [address] [place], [address] T PROT 7.1 g/dL Normal 6.4-8.2 [facility] Comment on above: Performed By: #### L 501.9520, L3100.5850, L500.4050, L100.0100, L500.4100 #### [facility] [address] [place], [address] Urea nitrogen [Mass/Vol] 20 mg/dL High 7-18 [facility] Comment on above: Performed By: #### L 501.9520, L3100.5850, L500.4050, L100.0100, L500.4100 #### [facility] [address] [place], [address] Glucose [Mass/Vol] 93 mg/dL Normal 74-106 [facility] Comment on above: Performed By: #### L 501.9520, L3100.5850, L500.4050, L100.0100, L500.4100 #### [facility] [address] [place], [address] Lipid Profileon 05-18-2022 Cholesterol [Mass/Vol] 190 mg/dL Normal 200 [facility] Comment on above: Result Comment: <200 mg/dL Desirable 200-240 mg/dL Borderline >240 mg/dL High Risk Performed By: #### L 501.9520, L3100.5850, L500.4050, L100.0100, L500.4100 #### [facility] [address] [place], [address] Cholesterol in HDL [Mass/Vol] 64 mg/dL Normal [facility] Comment on above: Result Comment: The drugs N-Acetylcysteine and Metamizole may falsely depress this assay. Reference Range HDL <40 mg/dL Low HDL Cholesterol HDL >or= 60 mg/dL High HDL Cholesterol Performed By: #### L 501.9520, L3100.5850, L500.4050, L100.0100, L500.4100 #### [facility] [address] [place], [address] Cholesterol in LDL [Mass/Vol] 112 mg/dL Normal 0-130 [facility] Comment on above: Performed By: #### L 501.9520, L3100.5850, L500.4050, L100.0100, L500.4100 #### [facility] [address] [place], [address] Cholesterol in VLDL [Mass/Vol] 14 mg/dL Normal 5-40 [facility] Comment on above: Performed By: #### L 501.9520, L3100.5850, L500.4050, L100.0100, L500.4100 #### [facility] [address] [place], [address] Triglyceride [Mass/Vol] 69 mg/dL Normal [facility] Comment on above: Result Comment: The drugs N-Acetylcysteine and Metamizole may falsely depress this assay. Serum Triglycerides Reference Interval Normal <150 mg/dL Borderline high 150 - 199 mg/dL High 200 - 499 mg/dL Very High > or = 500 mg/dL Performed By: #### L 501.9520, L3100.5850, L500.4050, L100.0100, L500.4100 #### [facility] [address] [facility] [place], [place], [id number] Thyroid Stim Hormone (TSH)on 05-18-2022 TSH 1.25 uIU/mL Normal 0.358-3.74 [facility] Comment on above: Performed By: #### L 501.9520, L3100.5850, L500.4050, L100.0100, L500.4100 #### [facility] [address] [facility] [place], [place], [id number] CNOVon 04-26-2021 CNOV Office Visit (UROLMD ) -- KAYEDIMITRI KERN Hannah ([id number]) 1965 F Date Time Provider Department 04/26/21 1:30 PM MARTINE RAMSEY JR UROLMD During your visit today, we recorded the following information about you: Weight Height 65.8 kg 1.626 m Martine Ramsey Jr, MD 04/26/2021 2:06 PM Signed ESTABLISHED PATIENT OFFICE VISIT HPI Dimitri Leeen is a 56 year old female who presents refer for kidney stone. Had routine mri for pancreatic cyst. Incidentally found to have 8mm L UPJ calc with hydro and 1.0 cm r renal pelvis calc. Never had stones before. Asymptomatic other than microhematuria. 04/26/21 - ct shows 8mm L UPJ calc. 16mm r renal pelvis calc. Other small bilateral renal calc. Options discussed. 1500+ HU's LAB: Creatinine Date Value Ref Range Status 03/30/2021 0.81 0.58 - 0.96 mg/dL Final 12/17/2020 0.74 0.58 - 0.96 mg/dL Final No results found for: PSA Glucose, Urine (mg/dL) Date Value 12/17/2020 Negative Bilirubin, Urine (no units) Date Value 12/17/2020 Negative Ketones, Urine (no units) Date Value 12/17/2020 Negative Specific [place], Ur (no units) Date Value 12/17/2020 1.015 Hemoglobin/Blood,Ur ( ) Date Value 12/17/2020 2+ pH, Urine (no units) Date Value 12/17/2020 8.0 Protein, Urine (no units) Date Value 12/17/2020 Negative Nitrites (no units) Date Value 12/17/2020 Negative WBC, Urine (/HPF) Date Value 12/17/2020 0-5 MEDICATIONS: tamsulosin (FLOMAX) 0.4 mg Take 1 capsule by mouth once daily. [place]-3 1,050 mg, Fish Oil, 1,050-1,200 mg cap Take 2 capsules by mouth twice daily. MULTI-VITAMIN ORAL Take 1 tablet by mouth twice daily. Calcium-Magnesium 300-300 mg tab Take 2 tablets by mouth twice daily. Lactobacillus acidophilus 10 billion cell cap Take 1 capsule by mouth once daily. beta-carotene,A,-vits C and E (ANTI-OXIDANT ORAL) Take 1 tablet by mouth twice daily. Mary Bvgy-Iezsdham-Xmfwylejs Ac (PRIMROSE OIL) 1,000 mg cap Take 1 capsule by mouth once daily. prasterone, DHEA, (DHEA ORAL) Take 5 mg by mouth once daily. glucosamine/msm/chondroiti n A (IDBQLTIDHWH-HROOKG-WXT ORAL) Take 1 tablet by mouth once daily. COMPOUNDED PRESCRIPTION Biest 0.6mg/0.5mL cream. Apply 0.6 mL twice daily COMPOUNDED PRESCRIPTION Progesterone 50 mg/mL cream. Apply 0.6 mL nightly nortriptyline (PAMELOR) 25 mg capsule Take 1 capsule by mouth daily at bedtime. levETIRAcetam (KEPPRA) 500 mg tablet Take 1 tablet by mouth twice daily for 6 days. REVIEW OF SYSTEMS Review of Systems Constitutional: Negative. Respiratory: Negative. Cardiovascular: Negative. Gastrointestinal: Negative. Genitourinary: Negative. Skin: Negative. Neurological: Negative. Psychiatric/Behavioral: Negative. HISTORIES PAST MEDICAL HISTORY Diagnosis Date - H/O bilateral oophorectomy - H/O rhinoplasty - H/O total hysterectomy 2010 - Pancreas cyst FAMILY HISTORY Problem Relation Age of Onset - Cancer Mother - Hypertension Father - Obesity Father - Diabetes Maternal Grandmother - Hypertension Maternal Grandfather - Alcohol/Drug Paternal Grandfather SOCIAL HISTORY Social History Tobacco Use - Smoking status: Never Smoker - Smokeless tobacco: Never Used Substance Use Topics - Alcohol use: No - Drug use: No PHYSICAL EXAMINATION General appearance: Well appearing, alert, in no acute distress and well-hydrated, well nourished Skin: Skin color, texture, turgor normal, no suspicious rashes or lesions Respiratory:+ effort Cardiovascular: Not examined GI: Normal abdominal exam, Abdomen soft, non-tender. No masses, organomegaly Musculoskeletal: Negative Neuro: Negative Genitourinary: not examined Impression: (N20.0) Kidney stone (primary encounter diagnosis) Plan: Cystoscopy, pyelogram, bilateral laser lithotripsy, bilateral ureteral stent placement All r/b/a of surgery discussed, infection, bleeding, damage to nearby structures, repeat surgery, stent pain/symptoms, , heart attack, stroke, deep vein thrombosis, pulmonary embolus. Patient verbalized understanding and agrees to proceed. Will have partner set up either same day bilateral laser lithotripsy or staged bilateral laser lithotripsy Martine Ramsey Jr, MD 04/26/2021 Referring Provider: MELITON LIGHT [[id number]] Allergies As of Date: 04/26/2021 Noted Allergy Reaction PENICILLINS 07/29/2018 16 - Unknown Date Reviewed: 04/26/2021 Reviewed by: Martine Ramsey Jr., MD - Fully Assessed Reason for Visit: Established Patient [175] Cmt: 3 week follow up/kidney stones Primary Visit Diagnosis:Kidney stone [N20.0] Order(s):UA DIP, URINE (POC) [9317020] Order #: [id number]. #:[id number] -LAB Prescriptions as of 04/26/2021 Sig: TAMSULOSIN 0.4 MG CAPSULE Take 1 capsule by mouth once * OMEGA-3 1,050 XO-OGX-CBV-DPA-* Take 2 capsules by mouth twic* MUL (more content not included)... Normal [facility] ALLIED HEALTHon 04-20-2021 ALLIED HEALTH HNO ID: [id number] Author: Jinny Valdez Service: ? Author Type: Floral Associate Type: Allied Health Filed: 04/20/2021 10:01 AM Note Text: Radiology Service Progress Note PATIENT NAME: Dimitri Moreau DATE OF SERVICE: April 20, 2021 TIME: 10:01 AM PATIENT IDENTITY VERIFICATION COMPLETED USING TWO (2) IDENTIFIERS: Name and Date of confirmed by patient verbally. FALL SCREENING: Has the patient had 2 falls in the last year or 1 fall with injury or currently using an Ambulatory Assistive Device (Walker, Cane, Wheelchair, Crutches, etc.)? No PATIENT GENDER DATA: Female. status: : No status: NO. PATIENT RELEVANT IMPLANT DATA REVIEWED: Not Applicable RADIOLOGY DEPARTMENT: General X-ray: Exam(s) Completed: Abdomen X-Ray: Abdomen PERIPHERAL IV DATA: Not applicable SIGNED BY: Jinny Valdez April 20, 2021 10:01 AM [facility] CNPMirta 04-07-2021 CNPN Telephone (UROLMD) -- KAYEDIMITRI KERN V ([id number]) 1965 F Date Time Provider Department 04/07/21 MARTINE RAMSEY JR URONENA During your visit today, we recorded the following information about you: Bonita Rogers Pss 04/07/2021 11:20 AM Signed Patient calls in this morning to inquire about a medication she says was supposed to have been sent to the pharmacy. It doesn't look like anything was sent from Dr. Ramsey Please advise Thank you Bonita Rogers Pss 04/07/2021 11:21 AM Signed Patient also asks for a call when the script has been sent over Thank you Rafia Douglas RN 04/07/2021 1:16 PM Signed She said that you mentioned something th help the stone pass. Patient phones requesting refills as follows: Pending Prescriptions Disp Refills TAMSULOSIN 0.4 MG CAPSULE 30 capsule 2 Sig: Take 1 capsule by mouth once daily. Please review and advise. Rafia Ramsey Jr, MD 04/07/2021 1:17 PM Signed sent Rafia Douglas RN 04/07/2021 1:29 PM Signed Left a message to follow up with pharmacy. Allergies As of Date: 04/07/2021 Noted Allergy Reaction PENICILLINS 07/29/2018 16 - Unknown Date Reviewed: 04/05/2021 Reviewed by: Martine Ramsey Jr., MD - Fully Assessed Reason for Visit: Patient Question [5201] Cmt: Medication needed Primary Visit Diagnosis:Kidney stone [N20.0] Order(s):tamsulosin (FLOMAX) 0.4 mgTake 1 capsule by mouth once daily.Disp: 30 capsuleRfl: 2 Prescriptions as of 04/07/2021 Sig: TAMSULOSIN 0.4 MG CAPSULE Take 1 capsule by mouth once * NORTRIPTYLINE 25 MG CAPSULE Take 1 capsule by mouth daily* LEVETIRACETAM 500 MG TABLET Take 1 tablet by mouth twice * OMEGA-3 1,050 KF-PWA-HZX-DPA-* Take 2 capsules by mouth twic* MULTI-VITAMIN ORAL Take 1 tablet by mouth twice * CALCIUM-MAGNESIUM 300 MG-300 * Take 2 tablets by mouth twice* LACTOBACILLUS ACIDOPHILUS 10 * Take 1 capsule by mouth once * ANTI-OXIDANT ORAL Take 1 tablet by mouth twice * EVENING PRIMROSE OIL-LINOLEIC* Take 1 capsule by mouth once * DHEA ORAL Take 5 mg by mouth once daily. PLWLACXOFVI-ARWYRZ-PFI ORAL Take 1 tablet by mouth once d* Patient not taking: Reported on 04/05/2021 COMPOUNDED PRESCRIPTION Biest 0.6mg/0.5mL cream. Gloria* COMPOUNDED PRESCRIPTION Progesterone 50 mg/mL cream. 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 Encounter Status:Closed by RAFIA DOUGLAS RN on 04/07/21 Normal [facility] CNOVon 04-05-2021 CNOV Office Visit (UROLMD ) -- DIMITRI MOREAU V ([id number]) 1965 F Date Time Provider Department 04/05/21 10:30 AM MARTINE RAMSEY JR UROLMD During your visit today, we recorded the following information about you: Weight Height 65.3 kg 1.626 m Martine Ramsey Jr, MD 04/05/2021 10:38 AM Signed NEW PATIENT HISTORY AND PHYSICAL EXAM PATIENT INFO: Dimitri Moreau 55 year old REFERRING PROVIDER: Data Unavailable PCP: 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 APRN.CROP SCOUT HPI Dimitri Moreau is a 55 year old female refer for kidney stone. Had routine mri for pancreatic cyst. Incidentally found to have 8mm L UPJ calc with hydro and 1.0 cm r renal pelvis calc. Never had stones before. Asymptomatic other than microhematuria. Review of Systems Constitutional: Negative. Respiratory: Negative. Cardiovascular: Negative. Gastrointestinal: Negative. Genitourinary: Negative. Skin: Negative. Neurological: Negative. Psychiatric/Behavioral: Negative. LAB: Creatinine Date Value Ref Range Status 03/30/2021 0.81 0.58 - 0.96 mg/dL Final 12/17/2020 0.74 0.58 - 0.96 mg/dL Final No results found for: PSA Glucose, Urine (mg/dL) Date Value 12/17/2020 Negative Bilirubin, Urine (no units) Date Value 12/17/2020 Negative Ketones, Urine (no units) Date Value 12/17/2020 Negative Specific [place], Ur (no units) Date Value 12/17/2020 1.015 Hemoglobin/Blood,Ur ( ) Date Value 12/17/2020 2+ pH, Urine (no units) Date Value 12/17/2020 8.0 Protein, Urine (no units) Date Value 12/17/2020 Negative Nitrites (no units) Date Value 12/17/2020 Negative WBC, Urine (/HPF) Date Value 12/17/2020 0-5 MEDICATIONS: [place]-3 1,050 mg, Fish Oil, 1,050-1,200 mg cap Take 2 capsules by mouth twice daily. MULTI-VITAMIN ORAL Take 1 tablet by mouth twice daily. Calcium-Magnesium 300-300 mg tab Take 2 tablets by mouth twice daily. Lactobacillus acidophilus 10 billion cell cap Take 1 capsule by mouth once daily. beta-carotene,A,-vits C and E (ANTI-OXIDANT ORAL) Take 1 tablet by mouth twice daily. Mary Gvcy-Juknlkns-Nyxkoorgd Ac (PRIMROSE OIL) 1,000 mg cap Take 1 capsule by mouth once daily. prasterone, DHEA, (DHEA ORAL) Take 5 mg by mouth once daily. COMPOUNDED PRESCRIPTION Biest 0.6mg/0.5mL cream. Apply 0.6 mL twice daily COMPOUNDED PRESCRIPTION Progesterone 50 mg/mL cream. Apply 0.6 mL nightly nortriptyline (PAMELOR) 25 mg capsule Take 1 capsule by mouth daily at bedtime. levETIRAcetam (KEPPRA) 500 mg tablet Take 1 tablet by mouth twice daily for 6 days. glucosamine/msm/chondroiti n A (VJKXQYZTMMI-YOZCRW-TPE ORAL) Take 1 tablet by mouth once daily. HISTORIES PAST MEDICAL HISTORY Diagnosis Date - H/O bilateral oophorectomy - H/O rhinoplasty - H/O total hysterectomy 2010 - Pancreas cyst FAMILY HISTORY Problem Relation Age of Onset - Cancer Mother - Hypertension Father - Obesity Father - Diabetes Maternal Grandmother - Hypertension Maternal Grandfather - Alcohol/Drug Paternal Grandfather SOCIAL HISTORY Social History Tobacco Use - Smoking status: Never Smoker - Smokeless tobacco: Never Used Substance Use Topics - Alcohol use: No - Drug use: No PHYSICAL EXAMINATION Ht 162.6 cm (5' 4) Wt 65.3 kg (144 lb) BMI 24.72 kg/m? General appearance: Well appearing, alert, in no acute distress and well-hydrated, well nourished Skin: Skin color, texture, turgor normal, no suspicious rashes or lesions Respiratory:+ effort Cardiovascular: Not examined GI: Normal abdominal exam, Abdomen soft, non-tender. No masses, organomegaly Musculoskeletal: normal ROM Neuro: No gross neurologic defecits Genitourinary: not examined ASSESSMENT: (N20.0) Kidney stone (primary encounter diagnosis) PLAN: Ct flank kub fu Martine Ramsey Jr, MD Referring Provider: MELITON LIGHT [[id number]] Allergies As of Date: 04/05/2021 Noted Allergy Reaction PENICILLINS 07/29/2018 16 - Unknown Date Reviewed: 04/05/2021 Reviewed by: Martine Ramsey Jr., MD - Fully Assessed Reason for Visit: New Patient [172] Cmt: Kidney stones Primary Visit Diagnosis:Kidney stone [N20.0] Order(s):UA DIP, URINE (POC) [[id number]] Order #: [id number]. #:[id number] -LAB CT ABD/PEL WO IVCON [[id number]] Order #: [id number] FUTURE XR ABDOMEN 1V SUPINE [[id number]] Order #: [id number] FUTURE Prescriptions as of 04/05/2021 Sig: OMEGA-3 1,050 YX-CRZ-AHW-DPA-* Take 2 capsules by mouth twic* MULTI-VITAMIN ORAL Take 1 tablet by mouth twice * CALCIUM-MAGNESIUM 300 MG-300 * Take 2 tablets by mouth twice* LACTOBACILLUS ACIDOPHILUS 10 * Take 1 capsule by mouth once * ANTI-OXIDANT ORAL Take 1 tablet by mouth twice * EVENING PRIMROSE OIL-LINOLEIC* Take 1 capsule by mouth once * DHEA ORAL Take 5 mg by mouth once daily. COMPOUNDED PRESCRIPTION Biest 0.6mg/0.5mL cream. Gloria* COMPOUNDED PRESCRIPTION Progesterone (more content not included)... Normal [facility] Office-Progress Notes-Pr ovideron 01-01-2021 Amb Office-Progress Notes-Provider Patient: DIMITRI MOREAU Age: 55 years Sex: Female : 1965 Associated Diagnoses: None Author: NESHA MERCADO, [facility] Visit Information Visit type: New symptom. Accompanied by: No one. Source of history: Self. History limitation: None. Chief Complaint History of Present Illness Mrs. Moreau is a 55-year-old lady with no major risk factors for coronary disease and no other major medical problems is here for cardiac evaluation for chest discomfort. Patient apparently has lot of stress since her father within 4 months after diagnosis of esophageal cancer and she was busy taking care of his estate and she is under a lot of stress. Patient apparently felt chest tightness while driving and it lasted for few seconds. The symptoms lasted around couple of times and both times it was nonexertional no radiation no associated symptoms. But when she came to the emergency room her symptoms have completely resolved. Her EKG and enzymes are normal. She is not a smoker. She has no hypertension no diabetes no family history of coronary disease. She never had a cardiac catheterization or a stress test before. Lipid Profile is normal. She does not do much exercise but she is relatively active with her work. Review of Systems Constitutional: Negative. Eye: Negative. Ear/Nose/Mouth/Throat: Negative. Respiratory: No shortness of breath, No cough, No wheezing. Cardiovascular: No chest pain, No palpitations, No peripheral edema. Gastrointestinal: No nausea, No vomiting, No heartburn, No abdominal pain. Genitourinary: Negative. Hematology/Lymphatics: Negative. Endocrine: Negative. Immunologic: Negative. Musculoskeletal: Negative. Integumentary: Negative. Psychiatric: Negative. Health Status Allergies: Allergic Reactions (All) Severity Not Documented Penicillins- No reactions were documented., Allergies (1) Active Reaction penicillins None Documented Current medications: (Selected) Documented Medications Documented DHEA: 5 mg, ORAL, DAILY, 0 Refill(s) Glucosamine Chondroitin: 1 tab, ORAL, DAILY, 0 Refill(s) Keppra 500 mg oral tablet: 500 mg = 1 tabs, ORAL, BID, 180 tabs, 0 Refill(s) Lexapro 5 mg oral tablet: 5 mg = 1 tabs, ORAL, DAILY, 90 tabs, 0 Refill(s) Pamelor 25 mg oral capsule: 25 mg = 1 caps, ORAL, QHS, 90 caps, 0 Refill(s) [place] Oil: 1,000 mg, ORAL, DAILY, 0 Refill(s) beta-carotene, A vit C and E: ORAL, BID, 0 Refill(s) calcium-magnesium: 300-300 mg, ORAL, DAILY, 0 Refill(s) hydrOXYzine hydrochloride 10 mg oral tablet: 10 mg = 1 tabs, ORAL, QID, PRN: for anxiety, 80 tabs, 0 Refill(s) lactobacillus acidophilus: 10 billion cell, ORAL, DAILY, 0 Refill(s) multivitamin: 1 tabs, ORAL, DAILY, 100 tabs, 0 Refill(s) omega-3 polyunsaturated fatty acids 1050 mg oral capsule: 1 cap, ORAL, DAILY, 0 Refill(s) Problem list: Active Problems (7) Anxiety Cyst of pancreas Dizziness Headache History of bilateral oophorectomy.. History of total hysterectomy Traumatic subarachnoid hemorrhage with loss of consciousness Histories Past Medical History: No qualifying data available Family History: Father Hypertension Mother Cancer Grandfather Hypertension Grandmother Diabetes.. Procedure history: total hysterectomy. removal of ovarys. Social History Social History Alcohol Denies Alcohol Use (12/21/2020) Substance Abuse Denies Substance Abuse (12/21/2020) Tobacco Denies Tobacco Use (12/21/2020) Psychosocial History No active psychosocial history has been recorded. Physical Examination No qualifying data available. General: Alert and oriented, No acute distress. Eye: Normal conjunctiva, Vision unchanged. HENT: Normal hearing. Neck: Supple, Non-tender, No carotid bruit, No jugular venous distention, No lymphadenopathy. Respiratory: Lungs are clear to auscultation, Breath sounds are equal, Symmetrical chest wall expansion. Cardiovascular: Normal rate, No gallop, Good pulses equal in all extremities, Normal peripheral perfusion, No edema. Bruit: None. Gastrointestinal: Soft, Non-tender, Normal bowel sounds. Genitourinary: No costovertebral angle tenderness. Musculoskeletal: No tenderness, No swelling. Integumentary: Warm, Dry. Neurologic: Alert, Normal sensory, Normal motor function, Cranial Nerves II-XII are grossly intact. Review / Management No qualifying data available Impression and Plan 1.New onset chest pain with normal ecg and enzymes 2.Will plan for stress test 3.Follow up in one month Normal [facility] Stress Test Reporton 021 Stress Test Report Patient: LEONARD MOREAU Age: 55 years Sex: Female : 1965 Associated Diagnoses: None Author: BURAK JEFFRIES MD [facility] STRESS TEST REPORT INDICATION: Chest pain RESTING ECG: Sinus rhythm BASELINE HEART RATE AND BP: 106/min and 120 x 80 mmHg PEAK HR AND BP: 164 per minute: 130/70 mm Hg DURATION: 6.54 minutes METS: 0.0 REASONG TO STOP: 8 SYMPTOMS: None ST CHANGES: None ARRHYTHMIAS: None IMPRESSION: 1. Moderately reduced working capacity in a test limited by fatigue 2. Normal heart rate and blood pressure response to exercise 3. No significant ectopy 4. No electrocardiographic evidence for stress-induced ischemia at near maximum heart rate Normal [facility] Ambulatory Clinical Summaryo n 12-27-2020 Ambulatory Clinical Summary DIMITRI MOREAU :1965 Visit Date:12/27/2020 Ambulatory Visit Instructions Your Care Team Attending Physician - BURAK JEFFRIES MD Primary Care Physician - MELITON LIGHT Procedures Performed removal of ovarys total hysterectomy Discharge Vitals Temperature (Tympanic) 98.9 ?F Heart Rate (Apical) 68 Temperature Tympanic (F): 98.9 degF (12/27/20 09:44:00) Height/Length Measured: 163 cm (12/27/20 09:44:00) Weight Measured: 63 kg (12/27/20 09:44:00) Body Mass Index Measured: 23.71 kg/m2 (12/27/20 09:44:00) Medications What How Much When Instructions Unchanged ascorbic acid/ chondroitin/ glucosa/ oxana (Glucosamine Chondroitin) 1 tab Oral DAILY Unchanged dehydroepiandrosterone (prasterone) (DHEA) 5 Milligram Oral DAILY Unchanged escitalopram (Lexapro 5 mg oral tablet) 1 Tabs Oral DAILY Unchanged hydrOXYzine (hydrOXYzine hydrochloride 10 mg oral tablet) 1 Tabs Oral FOUR TIMES A DAY as needed for for anxiety Unchanged levETIRAcetam (Keppra 500 mg oral tablet) 1 Tabs Oral TWICE A DAY Unchanged multivitamin 1 Tabs Oral DAILY Unchanged Non-Formulary Med (beta-carotene, A vit C and E) Oral TWICE A DAY Unchanged Non-Formulary Med (calcium-magnesium) 300-300 mg Oral DAILY Unchanged Non-Formulary Med (lactobacillus acidophilus) 10 billion cell Oral DAILY Unchanged Non-Formulary Med ([place] Oil) 1,000 Milligram Oral DAILY Unchanged nortriptyline (Pamelor 25 mg oral capsule) 1 Capsules Oral AT BEDTIME Unchanged omega-3 polyunsaturated fatty acids (omega-3 polyunsaturated fatty acids 1050 mg oral capsule) 1 cap Oral DAILY Allergies penicillins Problems Ongoing - Any problem that you are currently receiving treatment for. Anxiety Cyst of pancreas Dizziness Headache History of bilateral oophorectomy.. History of total hysterectomy Traumatic subarachnoid hemorrhage with loss of consciousness Common Emergency Awareness Tips IS IT A STROKE? Act FAST and Check for these signs: FACE Does the face look uneven? ARM Does one arm drift down? SPEECH Does their speech sound strange? TIME Call at any sign of stroke Heart Attack Signs Chest discomfort: Most heart attacks involve discomfort in the center of the chest and lasts more than a few minutes, or goes away and comes back. It can feel like uncomfortable pressure, squeezing, fullness or pain. Discomfort in upper body: Symptoms can include pain or discomfort in one or both arms, back, neck, jaw or stomach. Shortness of breath: With or without discomfort. Other signs: Breaking out in a cold sweat, nausea, or lightheaded. Remember, MINUTES DO MATTER. If you experience any of these heart attack warning signs, call to get immediate medical attention! Normal [facility] ALLIED HEALTHon 12-17-2020 ALLIED HEALTH HNO ID: [id number] Author: Jinny Schumacher (Rt) Service: Radiology Author Type: Floral Associate Type: Allied Health Filed: 12/17/2020 1:06 PM Note Text: Radiology Service Progress Note PATIENT NAME: Dimitri Moreau DATE OF SERVICE: December 17, 2020 TIME: 1:06 PM PATIENT IDENTITY VERIFICATION COMPLETED USING TWO (2) IDENTIFIERS: Name and Date of confirmed by patient verbally. FALL SCREENING: Has the patient had 2 falls in the last year or 1 fall with injury or currently using an Ambulatory Assistive Device (Walker, Cane, Wheelchair, Crutches, etc.)? Emergency Room Patient: Screened in ED PATIENT GENDER DATA: Female. status: : No status: NO. PATIENT RELEVANT IMPLANT DATA REVIEWED: Not Applicable RADIOLOGY DEPARTMENT: General X-ray: Exam(s) Completed: Chest X-Ray PERIPHERAL IV DATA: Not applicable SIGNED BY: Elo Calderon RT December 17, 2020 1:06 PM [facility] ALLIED HEALTH HNO ID: [id number] Author: Colton Carmichael (Rt) Jinny Mixon Service: ? Author Type: Floral Associate Type: Allied Health Filed: 12/17/2020 12:46 PM Note Text: a Radiology Service Progress Note PATIENT NAME: Dimitri Moreau DATE OF SERVICE: December 17, 2020 TIME: 12:46 PM PATIENT IDENTITY VERIFICATION COMPLETED USING TWO (2) IDENTIFIERS: Name and Date of confirmed by patient verbally and Name and Date of confirmed by identification band. FALL SCREENING: Has the patient had 2 falls in the last year or 1 fall with injury or currently using an Ambulatory Assistive Device (Walker, Cane, Wheelchair, Crutches, etc.)? Emergency Room Patient: Screened in ED PATIENT GENDER DATA: Female. status: : No status: NO. PATIENT RELEVANT IMPLANT DATA REVIEWED: Not Applicable RADIOLOGY DEPARTMENT: CT; Exam(s) Completed: Brain PERIPHERAL IV DATA: Not applicable SIGNED BY: Colton Mixon, RT December 17, 2020 12:46 PM [facility] CBC and Differentialon 12-17 Abs Baso 0.04 k/uL Normal <0.11 [facility] Comment on above: Performed By: #### C K, CMP, PT, CBCDIF, MG1 #### [facility] [address] [place] [address] Abs [place] 0.18 k/uL Normal <0.87 [facility] Comment on above: Performed By: #### C K, CMP, PT, CBCDIF, MG1 #### [facility] [address] [place], [place] [id number] Abs Neut 3.11 k/uL Normal 1.45-7.50 [facility] Comment on above: Performed By: #### C K, CMP, PT, CBCDIF, MG1 #### [facility] [address] [place], [place] [id number] Absolute nRBC <0.01 Normal <0.01 [facility] Comment on above: Performed By: #### C K, CMP, PT, CBCDIF, MG1 #### [facility] [address] [id number] Basophils/100 WBC (Bld) 0.9 % Normal [facility] Comment on above: Performed By: #### C K, CMP, PT, CBCDIF, MG1 #### [facility] [address] [id number] DTYPE Auto Diff Normal [facility] Comment on above: Performed By: #### C K, CMP, PT, CBCDIF, MG1 #### [facility] [address] [place], [place] [id number] Eosinophils (Bld) [#/Vol] 0.04 10*3/uL Normal <0.46 [facility] Comment on above: Performed By: #### C K, CMP, PT, CBCDIF, MG1 #### [facility] [address] [place], [place] [id number] Eosinophils/100 WBC (Bld) 0.9 % Normal [facility] Comment on above: Performed By: #### C K, CMP, PT, CBCDIF, MG1 #### [facility] [address] [place], [place] [id number] Erythrocyte distribution width (RBC) [Ratio] 12.0 % Normal 11.5-15.0 [facility] Comment on above: Performed By: #### C K, CMP, PT, CBCDIF, MG1 #### [facility] [address] [place], [place] [id number] Hematocrit (Bld) [Volume fraction] 39.7 % Normal 36.0-46.0 [facility] Comment on above: Performed By: #### C K, CMP, PT, CBCDIF, MG1 #### [facility] [address] [place], [place] [address] Hemoglobin (Bld) [Mass/Vol] 13.2 g/dL Normal 11.5-15.5 [facility] Comment on above: Performed By: #### C K, CMP, PT, CBCDIF, MG1 #### [facility] [address] [place] [address] Lymphocytes (Bld) [#/Vol] 1.06 10*3/uL Normal 1.00-4.00 [facility] Comment on above: Performed By: #### C K, CMP, PT, CBCDIF, MG1 #### [facility] [address] [place] [address] Lymphocytes/100 WBC (Bld) 23.9 % Normal [facility] Comment on above: Performed By: #### C K, CMP, PT, CBCDIF, MG1 #### [facility] [address] [place] [address] MCH (RBC) [Entitic mass] 29.5 pG Normal 26.0-34.0 [facility] Comment on above: Performed By: #### C K, CMP, PT, CBCDIF, MG1 #### [facility] [address] [place] [address] MCHC (RBC) [Mass/Vol] 33.2 g/dL Normal 30.5-36.0 [facility] Comment on above: Performed By: #### C K, CMP, PT, CBCDIF, MG1 #### [facility] [address] [place] [address] MCV (RBC) [Entitic vol] 88.6 fL Normal 80.0-100.0 [facility] Comment on above: Performed By: #### C K, CMP, PT, CBCDIF, MG1 #### [facility] [address] [place] [address] Monocytes/100 WBC (Bld) 4.1 % Normal [facility] Comment on above: Performed By: #### C K, CMP, PT, CBCDIF, MG1 #### [facility] [address] [place] [address] Neutrophils/100 WBC (Bld) 70.2 % Normal [facility] Comment on above: Performed By: #### C K, CMP, PT, CBCDIF, MG1 #### [facility] [address] [place] [address] NRBCs 0.0 /100 WBC Normal 0 [facility] Comment on above: Performed By: #### C K, CMP, PT, CBCDIF, MG1 #### [facility] [address] [place] [address] Platelet mean volume (Bld) [Entitic vol] 8.6 fL Low 9.0-12.7 [facility] Comment on above: Performed By: #### C K, CMP, PT, CBCDIF, MG1 #### [facility] [address] [address] Platelets (Bld) [#/Vol] 238 10*3/uL Normal 150-400 [facility] Comment on above: Performed By: #### C K, CMP, PT, CBCDIF, MG1 #### [facility] [address] [address] RBC (Bld) [#/Vol] 4.48 10*6/uL Normal 3.90-5.20 [facility] Comment on above: Performed By: #### C K, CMP, PT, CBCDIF, MG1 #### [facility] [address] [address] WBC (Bld) [#/Vol] 4.44 10*3/uL Normal 3.70-11.00 [facility] Comment on above: Performed By: #### C K, CMP, PT, CBCDIF, MG1 #### [facility] [address] [address] CKon 12-17-2020 CK [Catalytic activity/Vol] 56 U/L Normal 42-196 [facility] Comment on above: Performed By: #### C K, CMP, PT, CBCDIF, MG1 #### [facility] [address] [place] [address] CT BRAIN WO IVCONon 12-17-[address] BRAIN WO IVCON * * *Final Report* * * DATE OF EXAM: Dec 17 2020 12:49PM [facility] [place] [facility] [place] CT BRAIN WO IVCON / PROCEDURE REASON: Dizziness * * * * Physician Interpretation * * * * EXAMINATION: CT BRAIN WO IVCON CLINICAL HISTORY: Dizziness. TECHNIQUE: Serial axial images without IV contrast were obtained from the vertex to the foramen magnum. MQ: [id number]_3 CT Radiation dose: Integrated Dose-Length Product (DLP) for this visit = 778.29 mGy*cm CT Dose Reduction Employed: Automated exposure control(AEC) and iterative recon COMPARISON: Comparison is made to prior CT dated to July 2018 LIMITATIONS: Beam hardening artifact through the inferior brain and skull base limiting evaluation. RESULT: Post-operative change: None. Acute change: No evidence of an acute infarct or other acute parenchymal process. Hemorrhage: No evidence of acute intracranial hemorrhage. ECASS hemorrhagic transformation score: Not Applicable Mass Lesion / Mass Effect: There is no evidence of an intracranial mass or extraaxial fluid collection. No significant mass effect. Chronic change: None apparent. Parenchyma: There is no significant volume loss. The brain parenchyma is otherwise within normal limits for age. Ventricles: The ventricles are within normal limits of size and configuration for age. Paranasal sinuses and skull base: The visualized paranasal sinuses are grossly clear. The skull base and imaged soft tissues are unremarkable. Fur Tanner (topogram) images: No additional findings. IMPRESSION: Within the limits of artifact, no acute intracranial process noted. Claim Analyst: LINDA Transcribe Date/Time: Dec 17 2020 12:51P Dictated by : NOEMI MONTALVO MD This examination was interpreted and the report reviewed and electronically signed by: NOEMI MONTALVO MD on Dec 17 2020 12:53PM EST [id number] Normal [facility] Metabolic Panelon 12-17 Albumin [Mass/Vol] 4.8 g/dL Normal 3.9-4.9 [facility] Comment on above: Performed By: #### C K, CMP, PT, CBCDIF, MG1 #### [facility] [address] [place] [address] ALP [Catalytic activity/Vol] 61 U/L Normal 34-123 [facility] Comment on above: Performed By: #### C K, CMP, PT, CBCDIF, MG1 #### [facility] [address] [place] [address] ALT [Catalytic activity/Vol] 15 U/L Normal 7-38 [facility] Comment on above: Performed By: #### C K, CMP, PT, CBCDIF, MG1 #### [facility] [address] [place] [phone] Anion gap [Moles/Vol] 10 mmol/L Normal 9-18 [facility] Comment on above: Performed By: #### C K, CMP, PT, CBCDIF, MG1 #### [facility] [address] [facility] [phone] AST [Catalytic activity/Vol] 16 U/L Normal 13-35 [facility] Comment on above: Performed By: #### C K, CMP, PT, CBCDIF, MG1 #### [facility] [address] [facility] [phone] Bilirubin [Mass/Vol] 0.5 mg/dL Normal 0.2-1.3 [facility] Comment on above: Performed By: #### C K, CMP, PT, CBCDIF, MG1 #### [facility] [address] [facility] [phone] Calcium [Mass/Vol] 9.1 mg/dL Normal 8.5-10.2 [facility] Comment on above: Performed By: #### C K, CMP, PT, CBCDIF, MG1 #### [facility] [address] [place] [phone] Chloride [Moles/Vol] 105 mmol/L Normal 97-105 [facility] Comment on above: Performed By: #### C K, CMP, PT, CBCDIF, MG1 #### [facility] [address] [place] [address] CO2 [Moles/Vol] 28 mmol/L Normal 22-30 [facility] Comment on above: Performed By: #### C K, CMP, PT, CBCDIF, MG1 #### [facility] [address] [place] [phone] Creatinine [Mass/Vol] 0.74 mg/dL Normal 0.58-0.96 [facility] Comment on above: Performed By: #### C K, CMP, PT, CBCDIF, MG1 #### [facility] [address] [place] [address] eGFR- Amer. >60 Normal [facility] Comment on above: Performed By: #### C K, CMP, PT, CBCDIF, MG1 #### [facility] [address] [place] [phone] GFR/1.73 sq M predicted among non-blacks MDRD (S/P/Bld) [Vol rate/Area] mL/min/{1.73_m2} Normal [facility] Comment on above: Result Comment: eGFR (Estimated GFR) Units of measure: mL/min/1.73 meters squared eGFR is derived from the reexpressed MDRD Study equation using the following parameters: serum creatinine, age, gender and race. The creatinine assay has been calibrated to be traceable to IDMS. An eGFR <60 mL/min/1.73m2 for >3 months is consistent with chronic kidney disease. Refer to KDOQI guidelines for clinical interpretation. In patients with unstable renal function, e.g. those with acute kidney injury, the eGFR may not accurately reflect actual GFR. Performed By: #### C K, CMP, PT, CBCDIF, MG1 #### [facility] [address] [facility] [phone] Glucose [Mass/Vol] 92 mg/dL Normal 74-99 [facility] Comment on above: Result Comment: The [place] Diabetes Association (ADA) provides guidance for cutoff values for fasting glucose and random glucose. The ADA defines fasting as no caloric intake for at least 8 hours. Fasting plasma glucose results between 100 to 125 mg/dL indicate increased risk for diabetes (prediabetes). Fasting plasma glucose results greater than or equal to 126 mg/dL meet the criteria for diagnosis of diabetes. In the absence of unequivocal hyperglycemia, results should be confirmed by repeat testing. In a patient with classic symptoms of hyperglycemia or hyperglycemic crisis, random plasma glucose results greater than or equal to 200 mg/dL meet the criteria for diagnosis of diabetes. Reference: Standards of Medical Care in Diabetes 2016, [place] [employer] Association. Diabetes Care. 2016.39(Suppl 1). Performed By: #### C K, CMP, PT, CBCDIF, MG1 #### [facility] [address] [facility] [phone] Potassium [Moles/Vol] 3.9 mmol/L Normal 3.7-5.1 [facility] Comment on above: Performed By: #### C K, CMP, PT, CBCDIF, MG1 #### [facility] [address] [facility] [phone] Protein [Mass/Vol] 7.3 g/dL Normal 6.3-8.0 [facility] Comment on above: Performed By: #### C K, CMP, PT, CBCDIF, MG1 #### [facility] [address] [facility] [phone] Sodium [Moles/Vol] 143 mmol/L Normal 136-144 [facility] Comment on above: Performed By: #### C K, CMP, PT, CBCDIF, MG1 #### [facility] [address] [facility] [phone] Urea nitrogen [Mass/Vol] 13 mg/dL Normal 7-21 [facility] Comment on above: Performed By: #### C K, CMP, PT, CBCDIF, MG1 #### [facility] [address] [facility] [phone] ED NOTEon 12-17-2020 ED NOTE HNO ID: [id number] Author: Jennifer NevarezRn) ARNOL Parker Service: ? Author Type: Registered Nurse Type: ED Notes Filed: 12/17/2020 1:27 PM Note Text: Pt was ambulatory to the bathroom Gait is steady Normal [facility] ED NOTE HNO ID: [id number] Author: Jennifer Cerna) ARNOL Parker Service: ? Author Type: Registered Nurse Type: ED Notes Filed: 12/17/2020 1:00 PM Note Text: Pt is in radiology Normal [facility] ED NOTE HNO ID: [id number] Author: Wayne Greene) Hemanth Service: ? Author Type: Bid Manager and Floral Associate Type: ED Notes Filed: 12/17/2020 12:11 PM Note Text: Pt presents to ED with a racing heart and weakness since September. Pt states her left side felt like it was tingling. Normal [facility] ED PROV NOTEon 12-17-2020 ED PROV NOTE HNO ID: [id number] Author: Pinky Ricketts (Pa) Service: Emergency Medicine Author Type: Physician Meat Stringer Type: ED Provider Notes Filed: 12/17/2020 3:11 PM Note Text: ED Provider Note Patient Name: Dimitri Moreau SERVICE DATE: 12/17/20 History Patient presents with: Anxiety This is a 55-year-old female presenting to the ER with complaints of feeling lightheaded, chest pain, feeling of water washing over her, pain and weakness in her left arm and leg that occurred around 8 this morning and again at 10 in the morning. Symptoms lasted seconds to minutes. She states when she had chest pain like this in the past it started in September as she was caring for her father in [place] who was diagnosed with stage IV esophageal cancer. She had never had it checked out. She denies fever chills. No headache. No blurred or double vision. Chest pain has resolved since her arrival here in the emergency department. When she had it she did feel nauseous but no vomiting. She states she moved her bowels twice this morning and felt better. She states she just felt off. She attributed this back in September to anxiety. PAST MEDICAL HISTORY Diagnosis Date - H/O bilateral oophorectomy - H/O rhinoplasty - H/O total hysterectomy 2010 - Pancreas cyst PAST SURGICAL HISTORY Procedure Laterality Date - HYSTERECTOMY HX - REMOVAL OF OVARY(S) FAMILY HISTORY Problem Relation Age of Onset - Cancer Mother - Hypertension Father - Obesity Father - Diabetes Maternal Grandmother - Hypertension Maternal Grandfather - Alcohol/Drug Paternal Grandfather Social History Tobacco Use - Smoking status: Never Smoker - Smokeless tobacco: Never Used Substance and Sexual Activity - Alcohol use: No - Drug use: No - Sexual activity: Not on file ALLERGIES Allergen Reactions - Penicillins Unknown Review of Systems Constitutional: Negative for activity change. HENT: Negative. Negative for congestion, ear pain, rhinorrhea and sore throat. Eyes: Negative. Negative for pain, discharge and redness. Respiratory: Negative. Negative for chest tightness. Cardiovascular: Positive for chest pain. Gastrointestinal: Positive for diarrhea and nausea. Endocrine: Negative. Genitourinary: Negative. Negative for frequency and urgency. Musculoskeletal: Negative. Negative for arthralgias. Skin: Negative. Neurological: Positive for weakness and light-headedness. Psychiatric/Behavioral: Negative. Physical Exam BP 156/78 Pulse 98 Temp (Src) 98.1 (Oral) Resp 20 Ht 5' 4 (1.63m) Wt 135 lb (61.2kg) SpO2 99% BMI 23.16 kg/(m2). O2 Therapy: Room Air Physical Exam Constitutional: Appearance: She is well-developed. HENT: Head: Normocephalic and atraumatic. Eyes: Conjunctiva/sclera: Conjunctivae normal. Pupils: Pupils are equal, round, and reactive to light. Cardiovascular: Rate and Rhythm: Normal rate and regular rhythm. Heart sounds: Normal heart sounds. Pulmonary: Effort: Pulmonary effort is normal. Breath sounds: Normal breath sounds. Abdominal: General: Bowel sounds are normal. Palpations: Abdomen is soft. Musculoskeletal: General: Normal range of motion. Cervical back: Normal range of motion and neck supple. Comments: Full range of motion of the upper and lower extremities. Skin: General: Skin is warm and dry. Neurological: General: No focal deficit present. Mental Status: She is alert and oriented to person, place, and time. Sensory: No sensory deficit. Chest Pain Pathway There is no evidence of myocardial infarction by serial cardiac biomarkers Diagnostic Testing ED Labs Ordered and Reviewed CBC + DIFF - Abnormal; Notable for the following components: Result Value Ref Range MPV 8.6 (*) 9.0 - 12.7 fL All other components within normal limits URINALYSIS - Abnormal; Notable for the following components: Hemoglobin/Blood,Ur 2+ (*) Negative All other components within normal limits URINE MICROSCOPIC - Abnormal; Notable for the following components: Bacteria Occasional (*) 0 /HPF All other components within normal limits COMP METABOLIC PANEL MAGNESIUM BLD CK CREATINE KINASE HIGH SENSITIVITY TROPONIN T HIGH SENSITIVITY TROPONIN T PROTHROMBIN TIME/PT TOX SCREEN ROUT UR Procedures ED Course / Clinical Impression Clinical Impressions as of Dec 17 1510 Other chest pain Bereavement due to life event MDM / Disposition / Plan Additional Tests or Interventions: ECG EKG INTERPRETATION: Ordered and Reviewed Rhythm: Normal sinus rhythm Rate: 82 [place]: Normal axis Intervals: Normal OK interval QRS Complex: Normal ST Segment: Normal ST-T segments QT Interval: Normal Compared with Prior: Interpretation performed by Pinky Ricketts PA-C The medical record is reviewed The nursing notes are reviewed The vitals are Comorbid conditions include: anxiety Hx, exam and clinical data are most suggestive of 55-year-old feeling lightheaded and having chest pain and a feeling of water washing over her. She recently lost her father who had stage IV esophageal cancer diagnosed in September and on October 29 at 3 AM. She is very tearful.CT of the brain show no acute findings. Chest x-ray is normal. High-sensitivity troponin is negative. 2+ blood on her urine. Tox screen is negative. CMP is normal. Magnesium 2.1. CK 56. White count is 4.44. INR is 1. Her EKG sinus with a rate of 82. I provided resources for support and bereavement and grief. She will be discharged home and follow-up with her primary care physician. I also provided cardiology on-call. The patient was DISCHARGED: Counseled patient and family regarding lab results AND radiology results AND suspected diagnosis AND need for follow-up. Discharged home with verbal and written instructions. They were instructed to return as needed for persistent or worsening symptoms or any new concerns. 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 Patient states this morning when she woke up she felt her arm and leg were tingly. She also had palpitations. She has no chest pain. She thought maybe it was anxiety but it did not go away. She called her to see if she should go to the hospital but she states that he was not any help. She states she feels better now. Exam: Patient sitting in the cart in no distress. Heart is regular rate and rhythm. Lungs are clear to auscultation bilaterally without wheezing rhonchi rales. Abdomen is soft nontender nondistended. No leg edema. NIH is 0. Assessment/Plan: Patient will have basic labs checked as well as CT brain and cardiac enzymes. CBC and CMP are unremarkable. Chest x-ray is negative. CT brain is unremarkable. Initial high-sensitivity troponin is less than 6. Other additions or changes: None Signature: Rebeka Camacho, Date: 12/17/2020 Time: 2:00 PM Pinky Ricketts (Pa) 12/17/20 1511 Normal [facility] High Sens Troponin Ton 12-17 High Sensitivity JULIANNA 6 ng/L Normal <12 [facility] Comment on above: Performed By: #### H STNT #### [facility] [address] [facility] [phone] High Sensitivity JULIANNA <6 Normal <12 [facility] Comment on above: Performed By: #### H STNT #### [facility] [address] [facility] [phone] Magnesiumon 12-17-2020 Magnesium [Mass/Vol] 2.1 mg/dL Normal 1.7-2.3 [facility] Comment on above: Performed By: #### C K, CMP, PT, CBCDIF, MG1 #### [facility] [address] [facility] [phone] Protimeon 12-17-2020 PT Coag (PPP) [Time] 1.0 s Normal 0.9-1.3 [facility] Comment on above: Result Comment: Amy min K Antagonist (VKA) Therapeutic Range: INR 2 to 3 (Target INR of 2.5) Note: For patients treated with VKA drugs, such as warfarin, the [place] [employer] 2012 Guideline recommends a therapeutic INR range of 2 to 3 (target INR of 2.5). This recommendation includes high-risk patients with antiphospholipid syndrome with previous arterial or venous thromboembolism, current-generation mechanical or bioprosthetic aortic heart valve replacement. Note: Patients with mechanical aortic valve replacement and additional risk factors for thromboembolic events (atrial fibrillation, previous thromboembolism, LV dysfunction, hypercoagulable conditions) or an older generation mechanical AVR (i.e., ball in-Cage) or any mechanical MVR should have a INR therapeutic range of 2.5 to 3.5 (target INR of 3). Carissa GH, et al. Chest 2012, 141:7S-47S Woody RA, et al. JAC 2017, 70: 252-289 Performed By: #### C K, CMP, PT, CBCDIF, MG1 #### [facility] [address] [place] [address] PT Coag (PPP) [Time] 10.9 s Normal 9.7-13.0 [facility] Comment on above: Performed By: #### C K, CMP, PT, CBCDIF, MG1 #### [facility] [address] [facility] [phone] Toxicology Screen,Uron 12-17 Amphetamines, Urine Negative Normal Negative [facility] Comment on above: Result Comment: Cuto ff threshold at 1000 ng/mL. Performed By: #### U AMIC, UTOX2, UA #### [facility] [address] [facility] [phone] Barbiturates, Urine Negative Normal Negative [facility] Comment on above: Result Comment: Cuto ff threshold at 200 ng/mL. Performed By: #### U AMIC, UTOX2, UA #### [facility] [address] [facility] [phone] Benzodiazepines, Ur Negative Normal Negative [facility] Comment on above: Result Comment: Cuto ff threshold at 200 ng/mL. Performed By: #### U AMIC, UTOX2, UA #### [facility] [address] [facility] [phone] Cannabinoids, Urine Negative Normal Negative [facility] Comment on above: Result Comment: Cuto ff threshold at 50 ng/mL. Performed By: #### U AMIC, UTOX2, UA #### [facility] [address] [facility] [phone] Cocaine, Urine Negative Normal Negative [facility] Comment on above: Result Comment: Cuto ff threshold at 300 ng/mL. Performed By: #### U AMIC, UTOX2, UA #### [facility] [address] [facility] [phone] Opiates, Urine Negative Normal Negative [facility] Comment on above: Result Comment: Cuto ff threshold at 300 ng/mL. Performed By: #### U AMIC, UTOX2, UA #### [facility] [address] [place] [address] Oxycodone, Urine Negative Normal Negative [facility] Comment on above: Result Comment: Cuto ff threshold at 100 ng/mL. Comment: Immunoassay screen only. Cross reactivity with other substances can occur with immunoassay screening. Detection of any drug(s) in this urine toxicology panel is presumptive only. These tests are for medical purposes only and should not be used for compliance monitoring, legal, or forensic use. Samples should be within normal physiological conditions (e.g. pH). This assay does not include adulteration/specimen validity testing. In clinical settings, confirmatory testing is at the practitioner's discretion [1]. If clinically indicated, confirmation by high specificity, quantitative methodology, which includes adulteration/specimen validity testing, may be requested on the same specimen through Client Services ([phone]) if contacted within 48 hours of initial testing. [1]Substance Abuse and Mental Health Services Administration (2012). Clinical Drug Testing in Primary Care Technical Assistance Publication Series 32. Department of Health and Human Services, [place], p.10. Performed By: #### U AMIC, UTOX2, UA #### [facility] [address] Phencyclidine, Urine Negative Normal Negative [facility] Comment on above: Result Comment: Cuto ff threshold at 25 ng/mL. Performed By: #### U AMIC, UTOX2, UA #### [facility] [address] [address] Urinalysison 12-17-2020 Bilirubin, Urine Negative Normal Negative [facility] Comment on above: Performed By: #### U AMIC, UTOX2, UA #### [facility] [address] [address] Clarity (U) Clear Normal Clear [facility] Comment on above: Performed By: #### U AMIC, UTOX2, UA #### [facility] [address] [address] Color (U) Yellow Normal Yellow [facility] Comment on above: Performed By: #### U AMIC, UTOX2, UA #### [facility] [address] [address] Glucose Ql (U) Negative Normal Negative [facility] Comment on above: Performed By: #### U AMIC, UTOX2, UA #### [facility] [address] [address] Hemoglobin/Blood,U r 2+ Critically abnormal Negative [facility] Comment on above: Performed By: #### U AMIC, UTOX2, UA #### [facility] [address] [address] Ketones Ql (U) Negative Normal Negative [facility] Comment on above: Performed By: #### U AMIC, UTOX2, UA #### [facility] [address] [address] Leukest Negative Normal Negative [facility] Comment on above: Performed By: #### U AMIC, UTOX2, UA #### [facility] [address] [address] Nitrite Ql (U) Negative Normal Negative [facility] Comment on above: Performed By: #### U AMIC, UTOX2, UA #### [facility] [address] [address] pH (Bld) 8.0 Normal 5.0-8.0 [facility] Comment on above: Performed By: #### U AMIC, UTOX2, UA #### [facility] [address] [place] [address] Protein (U) [Mass/Vol] Negative Normal Negative [facility] Comment on above: Performed By: #### U AMIC, UTOX2, UA #### [facility] [address] [place] [address] Specific [place], Ur 1.015 Normal 1.005-1.030 [facility] Comment on above: Performed By: #### U AMIC, UTOX2, UA #### [facility] [address] [place] [address] Urobilinogen Qn (U) 0.2 E.U./dL Normal 0.2-1.0 [facility] Comment on above: Performed By: #### U AMIC, UTOX2, UA #### [facility] [address] [place] [address] Urine Microscopic (FOR LAB U SE ONLY)on 12-17-2020 Bacteria LM.HPF (Urine sed) [#/Area] Occasional Critically abnormal 0 [facility] Comment on above: Performed By: #### U AMIC, UTOX2, UA #### [facility] [address] [place] [address] Cast SEE COMMENT Normal 0 [facility] Comment on above: Result Comment: 0 Performed By: #### U AMIC, UTOX2, UA #### [facility] [address] [place] [address] RBC (U) [#/Vol] 0-3 Normal 0-3 [facility] Comment on above: Performed By: #### U AMIC, UTOX2, UA #### [facility] [address] [place], [place] [phone] WBC (Bld) [#/Vol] 0-5 Normal 0-5 [facility] Comment on above: Performed By: #### U AMIC, UTOX2, UA #### [facility] [address] [place], [place] [phone] XR CHEST 2V FRONTAL/LATon XR CHEST 2V FRONTAL/LAT * * *Final Report* * * DATE OF EXAM: Dec 17 2020 1:05PM MDX [id number] - XR CHEST 2V FRONTAL/LAT / PROCEDURE REASON: Lightheadedness * * * * Physician Interpretation * * * * EXAMINATION: CHEST RADIOGRAPH (2 VIEW FRONTAL and LATERAL) CLINICAL HISTORY: Lightheadedness MQ: [id number] EXAM DATE/TIME: 12/17/2020 1:05 PM COMPARISON: Chest x-ray on 07/29/2018. RESULT: Lines, tubes, and devices: None. Lungs and pleura: No consolidation. No lung mass. No pleural effusion. No pneumothorax. Cardiomediastinal silhouette: Stable cardiomediastinal silhouette. Bones and soft tissues: There are mild degenerative changes in the shoulders. IMPRESSION: No acute radiographic abnormality. Claim Analyst: LINDA Transcribe Date/Time: Dec 17 2020 1:05P Dictated by : DIAMOND KIRK MD This examination was interpreted and the report reviewed and electronically signed by: DIAMOND KIRK MD on Dec 17 2020 1:07PM EST [id number] [facility] Breast Tomosynthesis Scr Blon 05-05-2020 MG Breast Tomosynthesis Scr Bl Patient Name: DIMITRI MOREAU Mammography Exam Date/Time 05/05/2020 14:44:49 EDT Exam MG Breast Tomosynthesis BI Scr Ordering Physician SABRINA LIGHT DORA L Accession Number [id number] CPT4 Codes 02504 (MG Breast Tomosynthesis Scr Bl), 98050 (MG MAMMO 2D SCREENING) Reason For Exam screening Report REASON FOR EXAM: screening, asymptomatic. PROCEDURE: MG BREAST TOMOSYNTHESIS BL SCR: MAY 05, 2020 - 2D/3D Procedure 3D Bilateral CC and MLO view(s) were taken. 2D Bilateral CC and MLO view(s) were taken. Prior study comparison: December 22, 2013, bilateral mammogram. TISSUE DENSITY: BIRADS B - There are scattered fibroglandular densities. . FINDINGS: No suspicious masses, architectural distortions or suspiciously clustered microcalcifications are identified. There is no evidence of skin thickening or nipple retraction. There are no significant changes when compared with prior studies. Markings on images: BB's = Nipples; skin lesions Open kalispel = Palpable Line = Scar 2D digital mammography and tomosynthesis imaging were performed and reviewed with CAD. ASSESSMENT: Category 1 Negative RECOMMENDATION: Routine screening mammogram of both breasts in 1 year. . Report Dictated on Cancer Risk Assessment: This risk assessment is based on patient provided information collected in a risk survey taken at the time of this examination. Lifetime breast cancer risk: 11.77% - If greater than or equal to 20%, consider annual mammogram and annual screening Breast MRI or follow up in high risk clinic. Is the patient at elevated risk based on the HBOC criteria? No (Hereditary Breast and Ovarian Cancer) - If yes, consider genetic counseling and testing with high risk follow up. HNPCC mutation risk (Paulson Syndrome): 1.1% - if greater than or equal to 5%, consider genetic counseling, testing and screening colonoscopy. Final Signed Date and Time: 05/06/2020 7:36 am Signed by: MD DALEY LAUREN B [facility] MRI ABDOMEN WO/W IVCONon MRI ABDOMEN WO/W IVCON * * *Final Report* * * DATE OF EXAM: Mar 31 2020 1:33PM [facility] 0689 - MRI ABDOMEN WO/W IVCON / PROCEDURE REASON: Pancreatic cyst * * * * Physician Interpretation * * * * MRI OF THE ABDOMEN WITHOUT AND WITH CONTRAST:03/31/2020 CLINICAL HISTORY: Pancreatic cyst COMPARISON: MRI of the abdomen 02/25/2019 TECHNIQUE: Multiplanar, multisequence images through the abdomen with and without contrast. MRCP images were also obtained. 3D post-processing was performed on an independent workstation and reviewed and supervised by the interpreting physician. Contrast: IV: 14 ml of Dotarem Oral Contrast: None RESULT: Pancreas: A 1.5 cm lobulated cystic lesion in the inferior aspect of the pancreatic neck/head demonstrates no definite communication with the main pancreatic duct , no suspicious nodularity or enhancement, might represent a cystoadenoma, side branch IPMN or pseudocyst, but stable since 07/2018. A 0.6 cm cyst without nodularity or enhancement in the pancreatic tail is also stable since 07/2018. Otherwise, the pancreas demonstrates normal pre-contrast signal and enhances homogeneously without solid lesion. The pancreatic duct is normal in morphology. No pancreatic ductal dilation. Biliary: There is no intrahepatic biliary dilatation. The common bile duct is normal in course and caliber. No filling defects are identified within the common bile duct. Liver: Stable 1.0 cm hemangioma is present in the posterior right hepatic lobe. A 0.3 cm cyst is also noted in the periphery of the segment 8. No fatty liver or iron deposition. Spleen: There is no splenomegaly. There are no focal splenic lesions. Adrenals: No mass. Kidneys: No significant mass. No hydronephrosis. Visualized portions of the GI tract: No dilation or wall thickening. Lymphadenopathy: Absent. Mesentery/Peritoneum: No adenopathy. No ascites. Vasculature: The celiac axis and SMA are patent. The portal vein and branches, splenic vein, and SMV are patent. The hepatic veins are patent. Bones: Normal Bone marrow signal. Visualized portions of the Lower thorax: No significant finding. IMPRESSION: Two cystic lesions in the pancreas measuring up to 1.5 cm, without nodularity or enhancement and stable since 07/2018. Recommend continued follow-up yearly to determine 5 year stability and then every 2 years for a minimal of 9 year assessment as per ACR recommendations. Odessa AJ, Mery ME, Rigo DE, Lavon IR, Jeremías DV, Danial E, Ronnie WR, Dany LL, Linda PV. Management of Incidental Pancreatic Cysts: A White Paper of the ACR Incidental Findings Committee. J Am Gerber Radiol. 2017 Apr;14(7):911-923. Claim Analyst: LINDA Transcribe Date/Time: Mar 31 2020 1:46P Dictated by : RADHA GORMAN MD This examination was interpreted and the report reviewed and electronically signed by: RADHA GORMAN MD on Mar 31 2020 1:57PM EST Normal [facility] External Other: Preferred Me thod of Contacton 03-21-2017 Patient's prefered method of contact secmsg Invalid Interpretation Code [employer] Work Phone: Office Visiton 03-21-2017 Documentation of current medications (procedure) Done Invalid Interpretation Code [employer] Work Phone: Fall risk assessment Fall risk assessment Invalid Interpretation Code [employer] Work Phone: Clinical Lists Update: 03-19-2017 Tobacco smoking status NHIS Never smoker [facility] Work Phone: [phone] Tobacco use CPHS Never smoker Invalid Interpretation Code [facility] Work Phone: [phone] Clinical Lists Update: 03-01-2017 Anion gap 8 mmol/L Invalid Interpretation Code [facility] Work Phone: [phone] Anion gap [Moles/Vol] 8 mmol/L [facility] Work Phone: [phone] BUN/Creatinine Ratio 18 mg/mg Invalid Interpretation Code [facility] Work Phone: [phone] Calcium 8.7 mg/dL Invalid Interpretation Code [facility] Work Phone: [phone] Chloride 104 mmol/L Invalid Interpretation Code [facility] Work Phone: [phone] CO2 30 mmol/L Invalid Interpretation Code [facility] Work Phone: [phone] CO2 (BldV) [Partial pressure] 30 mmol/L [facility] Work Phone: [phone] Creatinine 0.76 mg/dL Invalid Interpretation Code [facility] Work Phone: [phone] eGFR (non-black) mL/min/{1.73_m2} Invalid Interpretation Code [facility] Work Phone: [phone] Erythrocyte distribution width (RBC) [Ratio] 12.4 % [facility] Work Phone: [phone] Erythrocytes (RBC) 4.26 10*6/uL Invalid Interpretation Code [facility] Work Phone: [phone] Glucose 125 mg/dL High [facility] Work Phone: [phone] Glucose [Mass/Vol] 125 mg/dL [facility] Work Phone: [phone] Hematocrit (Bld) [Volume fraction] 37.2 % [facility] Work Phone: [phone] Hematocrit (HCT) 37.2 % Invalid Interpretation Code [facility] Work Phone: [phone] Hemoglobin (HGB) 12.7 g/dL Invalid Interpretation Code [facility] Work Phone: [phone] MCH 29.8 pg Invalid Interpretation Code [facility] Work Phone: 1) MCH (RBC) [Entitic mass] 29.8 pg [facility] Work Phone: [phone] MCHC 34.1 g/dL Invalid Interpretation Code [facility] Work Phone: [phone] MCHC (RBC) [Mass/Vol] 34.1 g/dL [facility] Work Phone: 1) MCV 87.3 fL Invalid Interpretation Code [facility] Work Phone: 1) MCV (RBC) [Entitic vol] 87.3 fL [facility] Work Phone: 1) Platelet mean volume (Bld) [Entitic vol] 8.0 fL [facility] Work Phone: 1) Platelets 244 10*3/mm3 Invalid Interpretation Code [facility] Work Phone: 1) Platelets (Bld) [#/Vol] 244 10*3/mm3 [facility] Work Phone: [phone] PMV by Saadia 8.0 fL Invalid Interpretation Code [facility] Work Phone: [phone] Potassium 3.6 mmol/L Invalid Interpretation Code [facility] Work Phone: [phone] RBC (Bld) [#/Vol] 4.26 10*6/uL [facility] Work Phone: [phone] RDW-CA 12.4 % Invalid Interpretation Code [facility] Work Phone: 1) Sodium 138 mmol/L Invalid Interpretation Code [facility] Work Phone: [phone] Urea nitrogen 14 mg/dL Invalid Interpretation Code [facility] Work Phone: [phone] WBC (Bld) [#/Vol] 6.5 10*3/uL [facility] Work Phone: [phone] WBC (Leukocytes) 6.5 10*3/uL Invalid Interpretation Code [facility] Work Phone: [phone] Vital Signs Date Time Vital Sign Value Performing Clinician Susan sarabiay 04-03-2025 08:57-0400 Body height 162.6 cm Sadie Enriquez MD Work Phone: [facility] 04-03-2025 08:57-0400 Heart rate 67 /min Sadie Enriquez MD Work Phone: [facility] 04-03-2025 08:57-0400 SaO2% (BldA) [Mass fraction] 97 % Sadie Enriquez MD Work Phone: [facility] 11-06-2022 13:14-0500 Body height 162.6 cm Sadie Enriquez MD Work Phone: [facility] 11-06-2022 13:14-0500 Body weight 65.77 kg Sadie Enriquez MD Work Phone: [facility] 11-06-2022 13:14-0500 Diastolic blood pressure 76 mm[Hg] Sadie Enriquez MD Work Phone: [facility] 11-06-2022 13:14-0500 Systolic blood pressure 118 mm[Hg] Sadie Enriquez MD Work Phone: [facility] 03-21-2017 14:14-0400 BMI (Body Mass Index) 23.46 kg/m2 [facility] Work Phone: 03-21-2017 14:14-0400 BP Diastolic 60 mm[Hg] [facility] Work Phone: 03-21-2017 14:14-0400 BP Systolic 100 mm[Hg] [facility] Work Phone: 03-21-2017 14:14-0400 Height 165.1 cm [facility] Work Phone: 03-21-2017 14:14-0400 Pulse (Heart Rate) 88 /min [facility] Work Phone: 03-21-2017 14:14-0400 Respiratory Rate 20 /min [facility] Work Phone: 03-21-2017 14:14-0400 Weight 63.96 kg [facility] Work Phone: Encounters Encounter Date Encounter Type Care Provider Facility Start: 04-03-2025 End: 04-03-2025 Patient encounter procedure Sadie Enriquez MD Work Phone: [facility] Comment on above: Kidney stone (Primar y Dx) Start: 04-03-2025 End: 04-03-2025 ambulatory SADIE ENRIQUEZ Facility:[facility] Start: 04-01-2025 ambulatory SADIE ENRIQUEZ Fa cility:[facility] Start: 04-01-2025 End: 04-01-2025 Subsequent hospital visit by physician Xr [facility] Comment on above: Kidney stone [N20.0] Start: 12-08-2024 End: 12-08-2024 Telephone encounter Sadie Enriquez MD Work Phone: Urology Start: 09-15-2024 End: 09-24-2024 Telephone encounter Charisma Guo PA-C Work Phone: [facility] Comment on above: Appointment Start: 10-15-2023 Orders Only Charisma Guo PA-C Work Phone: [facility] Comment on above: Biliary cyst (Primar y Dx); Pancreas cyst Start: 11-06-2022 End: 11-06-2022 Patient encounter procedure Sadie Enriquez MD Work Phone: [facility] Comment on above: Kidney stone (Primar y Dx); Hyperoxaluria; Hypercalciuria Start: 11-01-2022 End: 11-01-2022 Subsequent hospital visit by physician Xr [facility] Comment on above: Kidney stone [N20.0] Start: 04-27-2022 Telephone encounter Sadie Enriquez MD Work Phone: [facility] 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 Start: 04-25-2022 Telephone encounter Sadie Enriquez MD Work Phone: [facility] Comment on above: Surgery Scheduled Ureteral calculus, r ight (Primary Dx) Start: 04-24-2022 Telephone encounter Sadie Enriquez MD Work Phone: [facility] Comment on above: Results Start: 04-19-2022 End: 04-19-2022 Subsequent hospital visit by physician Mri [facility] (1.5t) [facility] Comment on above: Pancreatic cyst [K86 .2] Start: 04-07-2022 End: 04-07-2022 Subsequent hospital visit by physician Xr [facility] Comment on above: Kidney stone [N20.0] Start: 05-05-2020 End: 05-05-2020 Subsequent hospital visit by physician 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 Work Phone: [facility] Comment on above: Arrived Procedures Date Procedure Procedure Detail Performing Clinician Start: 04-03-2025 Urnls dip stick/tabl et rgnt auto w/o microscopy Sadie Enriquez MD Work Phone: Start: 11-06-2022 Urnls dip stick/tabl et rgnt auto w/o microscopy Sadie Enriquez MD Work Phone: Start: 04-19-2022 Mri abdomen w/o & w/contrast material Maddy Can MD Work Phone: Plan of Treatment Date Care Activity Detail Author Start: 04-05-2027 End: 04-05-2027 Patient encounter procedure 04/05/2027 10:00 AM EDT Office Visit [facility] [address] [place] [address] Sadie Enriquez MD [address] [place] [address] 2 years with KUB prior [facility] Comment on above: 2 years with KUB levy or Start: 06-29-2025 Influenza vaccination Influenz a Vaccine (Season Ended) [facility] Start: 04-03-2025 End: 04-03-2025 Patient encounter procedure [facility] Comment on above: 12 months kub prior 12 months kub prior0 16 lvm need kub Start: 12-08-2024 End: 12-08-2024 Patient encounter procedure 12/08/2024 3:30 PM EST Office Visit [facility] [address] [place] [address] Sadie Enriquez MD [address] [place] [address] 12 months kub prior [facility] Comment on above: 12 months kub prior Start: 06-29-2024 Covid-19 Vaccine ( season) Covid-19 Vaccine ( season) [facility] Start: 06-29-2024 Influenza vaccination Influenza Vacc ine (#1) [facility] Start: 05-12-2024 DIABETES SCREEN DIABETES SCREEN [facility] Start: 05-12-2024 Diabetes Screening Diabetes Screenin g [facility] Start: 11-06-2023 End: 12-06-2023 XR ABDOMEN 1V SUPINE XR ABDOMEN 1V SUPINE Radiology Routine Kidney stone Expected: 11/06/2023, Expires: 12/06/2023 [facility] Work Phone: Comment on above: Expected: 11/06/2023 , Expires: 12/06/2023 Start: 06-29-2023 Influenza vaccination Influenza Vacc ine (#1) [facility] Start: 10-29-2022 [facility] Start: 06-29-2022 Influenza vaccination [facility] Start: 05-05-2021 Screening for malign ant neoplasm of breast Mammogram Screening [facility] Start: 06-29-2020 Influenza vaccination [facility] (# 1[facility] [place] Start: 03-21-2017 End: 03-21-2017 Appointment Appointment [facility] Work Phone: Start: 03-21-2017 End: 03-21-2017 Appointment Appointment [facility] Work Phone: Start: 03-21-2017 End: 03-21-2017 Follow Up Appt Other Follow Up Appt Other [facility] Work Phone: Start: 03-21-2017 End: 03-21-2017 Stress Echocardiogram (treadmill) Stress Echocardiogram (treadmill) [facility] Work Phone: Start: 2016 Pneumococcal Vaccine : 50+ (1 of 1 - PCV) Pneumococcal Vaccine: 50+ (1 of 1 - PCV) [facility] Start: 2016 Screening for malign ant neoplasm of breast Breast cancer screen [place], [place] Start: 2016 Screening for malign ant neoplasm of colon Colon cancer screen colonoscopy [place], [place] Start: 2016 Shingles Vaccine (1 of 2) Shingles Vaccine (1 of 2) [place], [place] Start: 2016 SHINGRIX VACCINE (1 of 2) SHINGRIX VACCINE (1 of 2) [facility] Start: 2011 COLOGUARD (FIT-DNA) COLOGUARD (FIT-D NA) [facility] Start: 2011 Colonoscopy COLONOSCOPY [facility] Start: 2011 COLORECTAL CANCER SCREENING COLORECTAL CANCER SCREENING [facility] Start: [address] COLONOGRAPHY [facility] Start: 2011 FECAL OCCULT BLOOD FECAL OCCULT BLOO D [facility] Start: 2011 Lipid panel Lipid Screening [facility] Start: 2011 LIPID SCREEN LIPID SCREEN [facility] Start: 2011 Screening for malign ant neoplasm of colon [facility] Start: 2011 SIGMOIDOSCOPY SIGMOIDOSCOPY [facility] Start: 2006 Lipid panel Lipid screen [place], [place] Start: 2006 Mammography MAMMOGRAM [facility] Start: 1996 HPV TESTING HPV TESTING [facility] Start: 1996 Screening for malign ant neoplasm of cervix HPV Testing [facility] Start: 1987 PAP TESTING PAP TESTING [facility] Start: 1987 Screening for malign ant neoplasm of cervix [facility] Start: 1985 DTaP/Tdap/Td vaccine (1 - Tdap) DTaP/Tdap/Td vaccine (1 - Tdap) [place], [place] Start: 1985 Hepatitis B Vaccine (1 of 3 - 19+ 3-dose series) Hepatitis B Vaccine (1 of 3 - 19+ 3-dose series) [facility] Start: 1985 Urine microalbumin profile [facility] Start: 1984 Anxiety Screening Anxiety Screening [facility] Start: 1984 Depression Screening Depression Scre ening [facility] Start: 1984 HEPATITIS C SCREENING HEPATITIS C [facility] Start: 1984 Hepatitis C screening Hepatitis C [facility] Start: 1984 HIV SCREENING HIV SCREENING [facility] Start: 1984 HIV screening HIV Screening [facility] Start: 1981 HIV screening HIV screen Viry jorge [facility] [place] Start: 1971 COVID-19 VACCINE (#1) COVID-19 VACCI NE (#1) [facility] Start: 1966 COVID-19 VACCINE (#1) COVID-19 VACCI NE (#1) [facility] Start: 1966 HEPATITIS B (1 of 3 - 3-dose series) HEPATITIS B (1 of 3 - 3-dose series) [facility] Start: 1966 Hepatitis B Vaccine (1 of 3 - 3-dose series) Hepatitis B Vaccine (1 of 3 - 3-dose series) [facility] Mri abdomen w/o & w/contrast material MRI PANC/BRET WO/W IVCON Radiology Routine Pancreatic cyst 04/19/2022 9:36 AM EDT [facility] Work Phone: End: 11-15-2024 Mri abdomen w/o & w/contrast material MRI PANC/BRET WO/W IVCON Radiology Routine Pancreas cyst 1 Occurrences starting 10/15/2023 until 11/15/2024 [facility] Work Phone: Comment on above: 1 Occurrences starti ng 10/15/2023 until 11/15/2024 End: 05-05-2020 Screening digital breast tomosynthesis bi Kelli Jorge Digital Screen Bilateral Imaging Routine Once for 1 Occurrences starting 05/05/2020 until 05/05/[address] [facility] [place] Comment on above: Once for 1 Occurrenc es starting 05/05/2020 until 05/05/2020 Screening digital br east tomosynthesis bi Kelli Jorge Digital Screen Bilateral Imaging Routine 05/05/2020 2:15 PM EDT [place] UA DIP B/O UA DIP B/O Lab R outine Kidney stone Ordered: 04/03/2025 [facility] Work Phone: Comment on above: Ordered: 04/03/2025 XR ABDOMEN 1V SUPINE XR ABDOMEN 1V SUPINE Radiology Routine Kidney stone 04/07/2022 4:19 PM EDT [facility] Work Phone: End: 11-01-2022 XR ABDOMEN 1V SUPINE [facility] Work Phone: Comment on above: 1 Occurrences starti ng 11/01/2022 until 11/01/2022 End: 01-07-2026 XR Abdomen Supine and Upright XR ABDOMEN 1V SUPINE Radiology Routine Kidney stone 1 Occurrences starting 12/08/2024 until 01/07/2026 [facility] Work Phone: Comment on above: 1 Occurrences starti ng 12/08/2024 until 01/07/2026 XR Abdomen Supine an d Upright XR ABDOMEN 1V SUPINE Radiology Routine Kidney stone 04/01/2025 3:54 PM EDT [facility] Work Phone: [facility] Payers Date Payer Category Payer Private Health Insurance [id number] 2022 Unknown [id number] 2020 Private Health Insurance [employer] C IGNA OAP [id number] 2020-Present [phone] [id number] [place] [address] Open Access [id number] Social History Date Type Detail Facility Tobacco smoking stat [facility]: 1965 Sex Assigned At Not on file M [facility] [place] Start: 07-29-2018 End: 11-06-2022 Tobacco smoking status NHIS Never smoked tobacco [facility] Start: 07-29-2018 End: 11-06-2022 Tobacco use and exposure Smokeless tobacco non-user [facility] Start: 10-10-2021 End: 04-03-2025 Alcohol intake Current non-drinker of alcohol (finding) [facility] Start: 03-28-2022 End: 04-27-2022 Exposure to SARS-CoV-2 (event) Not sure [facility] Start: 11-06-2022 End: 04-05-2023 History of Social function [facility] Start: 11-06-2022 End: 04-05-2023 Tobacco use panel [facility] PHQ2 Score 1 [facility] Medical Equipment Procedure Code Equipment Code Equipment Origin al Text Equipment Identifier Dates Stent Inlay Opti ma 6fr T[employer] Ph[employer] 24cm Ureteral - [id number] Start: 05-25-2021 Stent Inlay Opti ma 6fr [employer] 24cm Ureteral - [id number] Start: 05-25-2021 Functional Status Date Assessment Result Facility 07-30-2018 Are you deaf, or do you have serious difficulty hearing No 07/30/2018 7:04 PM JACQUELINET Natalya Steele APRN.CROP SCOUT No [facility] Work Phone: 07-30-2018 Are you blind, or do you have serious difficulty seeing, even when wearing glasses No 07/30/2018 7:04 PM JACQUELINET Natalya Steele APRN.CROP SCOUT No [facility] 07-30-2018 Do you have serious difficulty walking or climbing stairs No 07/30/2018 7:04 PM JACQUELINET Natalya Steele APRN.SABRINA No [facility] 07-30-2018 Do you have difficul ty dressing or bathing No 07/30/2018 7:04 PM JACQUELINET Natalya Steele APRN.CROP SCOUT No [facility] 07-30-2018 Because of a physica l, mental, or emotional condition, do you have difficulty doing errands alone such as visiting a physician's office or shopping No 07/30/2018 7:04 PM EDT Natalya Steele APRN.CROP SCOUT No [facility] Mental Status Date Assessment Result Facility 07-30-2018 Because of a physica l, mental, or emotional condition, do you have serious difficulty concentrating, remembering, or making decisions No 07/30/2018 7:04 PM EDT Natalya Steele APRN.CROP SCOUT No [facility] Clinical Notes 04-05-2021 to 04-03-2025 Patient InstructionsSaide Enriquez MD - 04/03/2025 8:[address] - 04/01/2025 3:30 PM EDTTelephone Encounter - Dorys Rowland - 09/24/2024 1:11 PM ESTPatient Instructions Note Date & Type Note Facility 04-03-2025 Instructions Sadie Enriquez MD - 04/03/2025 9:08 AM EDT INSTRUCTIONS FROM DR. ENRIQUEZ: Abdomen x-ray-2 years documented in this encounter [facility] 04-03-2025 Note HNO ID: [id number] Author: SADIE ENRIQUEZ MD Service: ? Author Type: Physician Type: Progress Notes Filed: 04/03/2025 13:40 Note Text: ESTABLISHED PATIENT OFFICE VISIT PATIENT INFO: Dimitri Moreau 59 year old HPI 04/03/2025 CC: Stone Presents with and no feeling of passing stones since I saw her and no flank pain Urine today negative and KUB may be stable stone lower pole left kidney Denies gross hematuria or dysuria After discussion she just wants to follow-up 2 years with KUB Past Urology Hx: 11/05/2023 CC: stone Dipstick urine negative today and she has not felt like passing stones since I saw her last Presents with her KUB shows suspected presence of 4 mm lower pole stone but CT in 2018 showed that also She is satisfied just follow-up 12 months with KUB and she pushes her lemonade ;; 11/06/2022 CC: stone Drink a lot of lemon juice and decided not to start hydrochlorothiazide which we reviewed once again Dipstick urine negative KUB May be punctate lower pole left renal stone She is comfortable just checking KUB in 12 months and does indicate she will get periodic MRI for other issues to be once every year and a half now 05/05/2022 CC: stone Stent not as bothersome as it was last time Status post laser lithotripsy of right ureteral calculus and presents for stent removal today Once again discussed history of elevated urine calcium on Litholink and stone analysis showed calcium oxalate and calcium phosphate mixed stone She just wants the prescription for the hydrochlorothiazide and will decide whether she wants to start it Printed out oxalate food list and stone precaution list She just wants KUB 6 months 04/10/2022 CC: stone Patient has not been doing the lemon and once again talked about her 24-hour urine study results showing Elevated urine calcium and oxalate Presents with her today 3 weeks ago some pink urine but just wants and no flank pain whatsoever KUB shows calcification along the course of mid right ureter so possibility ureteral stone She is getting MRI in [place] next week to follow her pancreas issue like we knew before and she will call when she does that so we can check results She understands she might still need CT scan Might need ureteroscopy and laser and stent on the right Once again discussed hydrochlorothiazide options 10/10/2021 CC: stone Months with her and she did her KUB which does not show any significant stone growth Urine today is negative Litholink study shows elevated urine calcium and oxalate but citrate levels normal Suggested starting hydrochlorothiazide given her history She is not interested in hydrochlorothiazide at all and will push lemonade rather than Urocit-K Discuss KUB in 6 months but she indicates she gets MRI every year and will be getting one in February so she will do that before sees me and order in for KUB to get one if she decides 06/06/2021 CC: stone Presents for cystoscopy and stent removal x2 today Status post bilateral ureteroscopy and staged procedure for her upper tract stones proved to be calcium phosphate mostly Stents have been troublesome for the patient and hard for her to sit too long and lots of urine frequency Denies fevers or chills Stents removed today She will get Litholink study and KUB prior to seeing me in 7 weeks April 28, 2021-telephone call by me to patient- P: cysto, bilat ureteroscopy, laser, stents, possible ESWL then cysto, bilat ureteroscopy, laser, stents 1 week later and can be HW 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 Ramsey- 56 year old female who presents refer for kidney stone. Had routine mri for pancreatic cyst. Incidentally found to have 8mm L UPJ calc with hydro and 1.0 cm r renal pelvis calc. Never had stones before. Asymptomatic other than microhematuria. 04/26/21 - ct shows 8mm L UPJ calc. 16mm r renal pelvis calc. Other small bilateral renal calc. Options discussed. 1500+ HU's RADS: April 01, [id number] of stool and bowel gas and maybe 3-4 mm calcification more per area left kidney October 17, 2023-MRI pancreas-possibility 2 mm calcification upper pole right kidney area or could just be volume averaging artifact October 17, 2023-KUB-suspect 4.6 mm lower pole left renal calculus November 01, [id number] left renal calculus over lower pole May 05, 2022-cystoscopy, stent removal April 27, 2022-stone analysis-60% calcium oxalate and 40% calcium phosphate April 27, 2022-right ureteroscopy with laser and stent April 19, 2022-MRI abdomen-new mild right sided hydronephrosis April 07, 2022-KUB-7 mm calcification on the right L4 level suspicious for ureteral stone 09/29/[id number]-Thlffcyrp-whlufh 2.4 L; calcium-349; oxalate-50; urine pH-7 June 06, 2021-Cystoscopy, removal of bilateral ureteral stents May 25, 2021 (more content not included)... [facility] 04-03-2025 History of Present illness Narrative ESTABLISHED PATIENT OFFICE VISIT PATIENT INFO: Dimitri Moreau 59 year old HPI 04/03/2025 CC: Stone Presents with and no feeling of passing stones since I saw her and no flank pain Urine today negative and KUB may be stable stone lower pole left kidney Denies gross hematuria or dysuria After discussion she just wants to follow-up 2 years with KUB Past Urology Hx: 11/05/2023 CC: stone Dipstick urine negative today and she has not felt like passing stones since I saw her last Presents with her KUB shows suspected presence of 4 mm lower pole stone but CT in 2018 showed that also She is satisfied just follow-up 12 months with KUB and she pushes her lemonade ;; 11/06/2022 CC: stone Drink a lot of lemon juice and decided not to start hydrochlorothiazide which we reviewed once again Dipstick urine negative KUB May be punctate lower pole left renal stone She is comfortable just checking KUB in 12 months and does indicate she will get periodic MRI for other issues to be once every year and a half now 05/05/2022 CC: stone Stent not as bothersome as it was last time Status post laser lithotripsy of right ureteral calculus and presents for stent removal today Once again discussed history of elevated urine calcium on Litholink and stone analysis showed calcium oxalate and calcium phosphate mixed stone She just wants the prescription for the hydrochlorothiazide and will decide whether she wants to start it Printed out oxalate food list and stone precaution list She just wants KUB 6 months 04/10/2022 CC: stone Patient has not been doing the lemon and once again talked about her 24-hour urine study results showing Elevated urine calcium and oxalate Presents with her today 3 weeks ago some pink urine but just wants and no flank pain whatsoever KUB shows calcification along the course of mid right ureter so possibility ureteral stone She is getting MRI in [place] next week to follow her pancreas issue like we knew before and she will call when she does that so we can check results She understands she might still need CT scan Might need ureteroscopy and laser and stent on the right Once again discussed hydrochlorothiazide options 10/10/2021 CC: stone Months with her and she did her KUB which does not show any significant stone growth Urine today is negative Litholink study shows elevated urine calcium and oxalate but citrate levels normal Suggested starting hydrochlorothiazide given her history She is not interested in hydrochlorothiazide at all and will push lemonade rather than Urocit-K Discuss KUB in 6 months but she indicates she gets MRI every year and will be getting one in February so she will do that before sees me and order in for KUB to get one if she decides 06/06/2021 CC: stone Presents for cystoscopy and stent removal x2 today Status post bilateral ureteroscopy and staged procedure for her upper tract stones proved to be calcium phosphate mostly Stents have been troublesome for the patient and hard for her to sit too long and lots of urine frequency Denies fevers or chills Stents removed today She will get Litholink study and KUB prior to seeing me in 7 weeks April 28, 2021-telephone call by me to patient- P: cysto, bilat ureteroscopy, laser, stents, possible ESWL then cysto, bilat ureteroscopy, laser, stents 1 week later and can be HW 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 Ramsey- 56 year old female who presents refer for kidney stone. Had routine mri for pancreatic cyst. Incidentally found to have 8mm L UPJ calc with hydro and 1.0 cm r renal pelvis calc. Never had stones before. Asymptomatic other than microhematuria. 04/26/21 - ct shows 8mm L UPJ calc. 16mm r renal pelvis calc. Other small bilateral renal calc. Options discussed. 1500+ HU's RADS: April 01, [id number] of stool and bowel gas and maybe 3-4 mm calcification more per area left kidney October 17, 2023-MRI pancreas-possibility 2 mm calcification upper pole right kidney area or could just be volume averaging artifact October 17, 2023-KUB-suspect 4.6 mm lower pole left renal calculus November 01, [id number] left renal calculus over lower pole May 05, 2022-cystoscopy, stent removal April 27, 2022-stone analysis-60% calcium oxalate and 40% calcium phosphate April 27, 2022-right ureteroscopy with laser and stent April 19, 2022-MRI abdomen-new mild right sided hydronephrosis April 07, 2022-KUB-7 mm calcification on the right L4 level suspicious for ureteral stone 09/29/[id number]-Ywvjkadgk-nviyno 2.4 L; calcium-349; oxalate-50; urine pH-7 June 06, 2021-Cystoscopy, removal of bilateral ureteral stents May 25, 2021-stone analysis-70% calcium phosphate; 20% calcium oxalate dihydrate May 25, 2021-cystoscopy, bilateral ureteroscopy with laser and bilateral stent replacement May 20, 2021-cystoscopy, bilateral ureteroscopy with bilateral laser lithotripsy and bilateral ureteral stents; left ESWL May 12, 2021-calcium level-9.6 April 20, 2021-KUB-1.4 cm right and 1.4 cm left sided UPJ calculiBut the one on the left is more oval in shape and the one on the right is round July 29, 2018-CT scan with IV-3 mm upper pole right renal calculus, 4 mm lower pole left renal calculus; there are other general findings Creatinine Date Value Ref Range Status 05/12/2021 0.91 0.58 - 0.96 mg/dL Final No results found for: PSA Color (no units) Date Value 12/17/2020 Yellow Glucose, Urine (mg/dL) Date Value 12/17/2020 Negative Bilirubin, Urine (no units) Date Value 12/17/2020 Negative Ketones, Urine (no units) Date Value 12/17/2020 Negative Specific Haw[place], Ur (no units) Date Value 12/17/2020 1.015 Hemoglobin/Blood,Ur ( ) Date Value 12/17/2020 2+ pH, Urine (no units) Date Value 12/17/2020 8.0 Protein, Urine (no units) Date Value 12/17/2020 Negative Urobilinogen (E.U./dL) Date Value 12/17/2020 0.2 Nitrites (no units) Date Value 12/17/2020 Negative Leukest (no units) Date Value 12/17/2020 Negative Review of Systems Constitutional: Negative. HENT: Negative. Eyes: Negative. Respiratory: Negative. Cardiovascular: Negative. Gastrointestinal: Negative. Endocrine: Negative. Genitourinary: See HPI Musculoskeletal: Negative. Skin: Negative. Allergic/Immunologic: Negative. Neurological: Negative. Hematological: Negative. Psychiatric/Behavioral: Negative. I reviewed and confirmed ROS obtained by [facility] HISTORIES PAST MEDICAL HISTORY Diagnosis Date Delayed emergence from general anesthesia pt states the last time i had anesthesia i was foggy for several months afterwards TBI Jul.29 Depression Generalized anxiety disorder H/O bilateral oophorectomy H/O total hysterectomy 2010 Pancreas cyst (HCC) TBI (traumatic brain injury) (HCC) 07/2018; residual anxiety/depression, balance issues FAMILY HISTORY Problem Relation Age of Onset Cancer Mother Hypertension Father Obesity Father Diabetes Maternal Grandmother Hypertension Maternal Grandfather Alcohol/Drug Paternal Grandfather SOCIAL HISTORY Social History Tobacco Use Smoking status: Never Smokeless tobacco: Never Substance Use Topics Alcohol use: No Drug use: No MEDICATIONS: MEDICATION, NON-DATABASE Take 250 mg by mouth once daily. provex -plus grape seed extract,gingko biloba cholecalciferol, vitamin D3, (VITAMIN D3 ORAL) Take 2,000 Units by mouth once daily. vitamin b complex capsule Take 1 capsule by mouth once daily. Methyl B complex ASHWAGANDHA ROOT EXTRACT ORAL Take 350 mg by mouth twice daily. hydrOXYzine HCl (ATARAX) 10 mg tablet Take by mouth four times daily as needed for anxiety. 3-4 times daily calcium carb/mag oxide/C/beta (CALCIUM COMPLETE ORAL) Take 1 capsule by mouth twice daily. 2.5 mcg vit d,250 mg calcium,50 mg magnesium evening primrose oil (EVENING PRIMROSE ORAL) Take 1,300 mg by mouth once daily. OMEGA 9-FZZ-KAW-FISH OIL ORAL Take 2 capsules by mouth twice daily. 660 DHA and 720 EPA MULTI-VITAMIN ORAL Take 1 tablet by mouth twice daily. Lactobacillus acidophilus 10 billion cell cap Take 1 capsule by mouth once daily. beta-carotene,A,-vits C and E (ANTI-OXIDANT ORAL) Take 1 tablet by mouth twice daily. prasterone, DHEA, (DHEA ORAL) Dissolve 5 mg under the tongue once daily. One half tab COMPOUNDED PRESCRIPTION Biest 0.6mg/0.5mL cream. Apply 0.6 mL twice daily COMPOUNDED PRESCRIPTION Progesterone 50 mg/mL cream. Apply 0.6 mL nightly iv contrast (will be provided with radiology test) MRI PANC/BRET Inject, intravenously, once for 1 dose. No IV access, insert saline lock prior to the beginning of sedation, infusion, injection of imaging exam. Discontinue saline lock post exam. If Pt. has a central line or IVAD, may access for administration according to line specific nursing protocol. Once exam is complete flush line and de-access according to line specific nursing protocol in the MR contrast administration guidelines link. iv contrast (will be provided with radiology test) MRI PANC/BRET Inject, intravenously, once for 1 dose. No IV access, insert saline lock prior to the beginning of sedation, infusion, injection of imaging exam. Discontinue saline lock post exam. If Pt. has a central line or IVAD, may access for administration according to line specific nursing protocol. Once exam is complete flush line and de-access according to line specific nursing protocol in the MR contrast administration guidelines link. hydroCHLOROthiazide (HYDRODIURIL, ESIDRIX) 25 mg tablet Take 1 tablet by mouth once daily. (Patient not taking: Reported on 11/05/2023) tamsulosin (FLOMAX) 0.4 mg Take 1 capsule by mouth daily at bedtime. (Patient not taking: Reported on 04/03/2025) phenazopyridine (PYRIDIUM) 200 mg tablet Take 1 tablet by mouth three times daily as needed. (Patient not taking: Reported on 05/05/2022 ) oxybutynin (DITROPAN) 5 mg tablet Take 1 tablet by mouth three times daily as needed (bladder spasms) for up to 14 days. Physical Exam Constitutional: General: She is not in acute distress. Appearance: She is not diaphoretic. HENT: Head: Normocephalic and atraumatic. Nose: Nose normal. Eyes: General: Left eye: No discharge. Neck: Trachea: No tracheal deviation. Pulmonary: Effort: Pulmonary effort is normal. No respiratory distress. Musculoskeletal: General: No deformity. Normal range of motion. Cervical back: Normal range of motion. Skin: General: Skin is warm. Neurological: Mental Status: She is alert and oriented to person, place, and time. Gait: Gait is intact. Psychiatric: Mood and Affect: Mood and affect normal. Risk/Benefit Discussion: FOLLOW UP (1s&1w; 3s): Return in about 2 years (around 04/03/2027). ASSESSMENT/PLAN: 1. Kidney stone - ICD9: 592.0, ICD10: N20.0 KUB-2 years - UA DIP B/O Sadie Enriquez The sensitive exam: The sensitive examination was discussed with the Patient or Patient's Authorized Firmware Test Engineer. As applicable, any other physician, advance practice provider, medical student, or other health professional student that will be observing or involved in the sensitive examination for educational or training purposes was discussed with the Patient or Authorized Firmware Test Engineer. The Patient or Authorized Firmware Test Engineer has agreed to proceed with the sensitive examination. (Sensitive examination includes inspection and/or palpation of the breasts, pelvis, prostate and anorectal regions) Please note: This note has been produced using speech recognition software and may contain errors related to that system including grammar, punctuation, spelling, gender and words and phrases that may be inappropriate. documented in this encounter [facility] 04-01-2025 History of Present illness Narrative Radiology Service Progress Note PATIENT NAME: Dimitri Moreau DATE OF SERVICE: April 01, 2025 TIME: 3:54 PM PATIENT IDENTITY VERIFICATION COMPLETED USING TWO (2) IDENTIFIERS: Name and Date of confirmed by patient verbally. FALL SCREENING: Has the patient had 2 falls in the last year or 1 fall with injury or currently using an Ambulatory Assistive Device (Walker, Cane, Wheelchair, Crutches, etc.)? No PATIENT GENDER DATA: Assigned female at . status: : No status: NO. PATIENT RELEVANT IMPLANT DATA REVIEWED: Not Applicable PATIENT PRESENTS WITH AN IMPLANTABLE OR ATTACHED HAM MARKER: No RADIOLOGY DEPARTMENT: General X-ray: Exam(s) Completed: Abdomen X-Ray: Abdomen PERIPHERAL IV DATA: Not applicable SIGNED BY: FARIDEH Sherwood April 01, 2025 3:54 PM documented in this encounter [facility] 04-01-2025 Note HNO ID: [id number] Author: ELISE LLANES CT Service: ? Author Type: Technologist Type: Progress Notes Filed: 04/01/2025 15:55 Note Text: Radiology Service Progress Note PATIENT NAME: Dimitri Moreau DATE OF SERVICE: April 01, 2025 TIME: 3:54 PM PATIENT IDENTITY VERIFICATION COMPLETED USING TWO (2) IDENTIFIERS: Name and Date of confirmed by patient verbally. FALL SCREENING: Has the patient had 2 falls in the last year or 1 fall with injury or currently using an Ambulatory Assistive Device (Walker, Cane, Wheelchair, Crutches, etc.)? No PATIENT GENDER DATA: Assigned female at . status: : No status: NO. PATIENT RELEVANT IMPLANT DATA REVIEWED: Not Applicable PATIENT PRESENTS WITH AN IMPLANTABLE OR ATTACHED HAM MARKER: No RADIOLOGY DEPARTMENT: General X-ray: Exam(s) Completed: Abdomen X-Ray: Abdomen PERIPHERAL IV DATA: Not applicable SIGNED BY: FARIDEH Sherwood April 01, 2025 3:54 PM [facility] 09-24-2024 Telephone encounter Note Patient called back in cancelled her appointments, per patients she was told at last OV that she did not need to come back for 18 months and does not wish to get anything done at this time, would rather wait till next year. Patient asked to be scheduled in March of 2025. Informed patient I would talk to provider and call if anything changes and they want her in sooner. Lina [facility] 09-24-2024 Miscellaneous Notes Patient called back in cancelled her appointments, per patients she was told at last OV that she did not need to come back for 18 months and does not wish to get anything done at this time, would rather wait till next year. Patient asked to be scheduled in March of 2025. Informed patient I would talk to provider and call if anything changes and they want her in sooner. Lina Called patient, no answer, left VM to call office to go over MRI and follow up appointment. Mailed appointment information to patient. Josue MACK Called patient, no answer, left VM to call office to go over upcoming MRI appointment and schedule follow up with Charisma Guo PA-C or Dr. Morrell. Josue MACK documented in this encounter [facility] 09-24-2024 Telephone encounter Note Called patient, no answer, left VM to call office to go over MRI and follow up appointment. Mailed appointment information to patient. Josue MACK [facility] 09-15-2024 Telephone encounter Note Called patient, no answer, left VM to call office to go over upcoming MRI appointment and schedule follow up with Charisma Guo PA-C or Dr. Morrell. Josue MACK [facility] 11-06-2022 Instructions Sadie Enriquez MD - 11/06/2022 1:36 PM EST Images from the original note were not included. INSTRUCTIONS FROM DR. ENRIQUEZ: Abdomen x-ray in 12 months PATIENT INFORMATION: Oxalate-Controlled Diet Stone precautions: 1 The amount of fluids in your diet. It is very important to drink plenty of liquids. Your goal should be 10-12 glasses a day. At least 5-6 glasses should be water. Goal is to achieve 2 L of urine output over a 24-hour period. You may also want to consider drinking lemonade. Research suggests that lemonade may be helpful in reducing the risk of calcium oxalate stone formation. 2. The amount of protein in your diet. Eating large amounts of protein (Specifically animal protein) may increase the risk of kidney stone formation. As a part of a balanced diet, your daily protein needs can usually be met with 4 to 6 ounces of protein per day, since other food groups (fat-free or low-fat dairy, whole grains, and vegetables) provide additional sources of protein. A Registered Dietitian can assist with determining your specific protein needs. 3 The amount of sodium in your diet. Reduce the amount of sodium in your diet to 2-3 grams per day. This can lead to decreased amount of calcium excreted in the urine. Limit eating processed foods such as hot dogs, deli meats, sausage, canned products, dry soup mixes, sauerkraut, pickles, and various convenience mixes. 4. The amount of calcium in your diet. A normal calcium diet usually consists of consuming approximately 7435-7779 mg of dietary calcium each day. Low amounts of calcium in your diet will increase your chances of forming calcium oxalate kidney stones. You need calcium in your diet to bind oxalate in the intestines. This helps reduce the amount of oxalate being absorbed by your body, so stones are less likely to form. Eat calcium rich foods and beverages every day (2 to 3 servings) from dairy foods or other calcium-rich foods. Eat high calcium foods at the same time as high oxalate food; for example have low fat cheese with a spinach salad or yogurt with berries. If you take a calcium supplement, calcium citrate is the preferred form. 5. The vitamin C content of your diet. Oxalate is an end product of Vitamin C (ascorbic acid) metabolism. Large doses of Vitamin C may increase the amount of oxalate in your urine, increasing the risk of kidney stone formation. If you are taking a supplement, do not take more than 500 mg of Vitamin C daily. TAKE vitamin B6 50 mg a day. The amount of oxalate in certain foods. Oxalate is a compound that is naturally present in many foods. Eat fewer high-oxalate foods. Why? The more oxalate that is absorbed from your digestive tract, the more oxalate in your urine. High-oxalate foods to limit, if you eat them, are: Spinach Rhubarb Beets Potato chips Slovak fries Nuts and nut butters You do not need to cut out other healthy foods that provide some oxalate. In fact, oxalate is practically unavoidable, because most plant foods have some. Often a combination of calcium from foods or beverages with meals and fewer high-oxalate foods is required. PARTIAL LIST OF OXALATE CONTENT OF FOODS FOOD MG OF OXALATE (Serving Size in Parentheses) Spinach cooked 608 (1/2 cup) Rhubarb, frozen 570 (1/2 cup) Spinach, chopped raw 361 (1 cup) Green beans, steamed 45 (1 cup) Bran flakes 40 (1/2 cup) Peanuts 27 (1 oz) Potato, microwave 25 (1 medium) Celery 25 (1 stalk) Tea, brewed 18 (1 cup) Chocolate 16 (1 oz bar) Peanut butter 15 (1 Tbsp) White bread 4 (1 slice) Carrots raw 4 (1 carrot) Potato chips 3 (1 serving bag) White rice, steamed 3 (1 cup) Peaches, canned 1 (1/2 cup) Broccoli, steamed 1 (1/2 cup) [place] jelly 1 (1 Tbsp) Apple, raw 0.7 (1 fruit) [place] flakes 0.6 (1 cup) 6.CITRIC ACID AND KIDNEY STONES What is it and how can it help? Citric acid is found in many fruits and fruit juices. It is not a vitamin or mineral (and should not be confused with ascorbic acid - Vit C!), and is not necessary in the diet. It is, however, beneficial for those with stones. It helps to inhibit stone formation and can help to dissolve kidney stone crystals before they form into a stone. Citric acid is protective against stones - the more citrate you have in your urine, the more protected you'll be against forming new stones and ones already there from getting larger. How does citrate protect against stones? Citric acid in it's natural form (ie. citrus fruit - tiki, limes) does not alkalinize the urine as citrate does from a medication (ie. Potassium citrate). Citrate binds with calcium in the urine, which in turn, keeps the calcium soluble and unavailable for binding with oxalate or phosphate crystals to form stones. What are the best food sources? Most commonly found in citrus fruits and juices, but tiki and limes have the most citric acid content. Other fresh fruits and veggies also contain citrate and will benefit your citrate level, but no to the extent that tiki and limes will. Tiki and limes will also not contribute excess calories to your diet. A half cup (4 oz) of pure lemon or sokaogon juice in 32 oz of water OR 32 oz of prepared low-sugar lemonade (think Crystal Light) provide about the same amounts of citric acid. Remember - lemonade is not lemon juice! Lemonade is diluted lemon juice with a lot of sugar! 10 Easy Tips for Increasing your Citric Acid Intake Eat 5 or more fruits and veggies daily. While tiki and limes are the most beneficial, increasing your intake of all fruits and veggies (especially those of the citrus variety) will positively contribute to your citrate level. Squeeze fresh lemon or lemon juice into ice cube trays, fill with water, then freeze. You can then use these cubes for your water or other beverages. You can also do the same with limes/sokaogon juice if your prefer that taste more. You can also use both together! Squeeze fresh lemon or sokaogon juice to any beverage! Dilute 2 oz lemon/sokaogon juice with 16 oz of water and drink twice a day. Goal should be about 4 oz per day Drink low-sugar, low-calorie lemonade everyday. Full calorie lemonades are not recommended as they contain a lot of fructose, which can increase the risk for stones and weight gain. To make homemade lemonade: squeeze 4 oz (half-cup) of fresh lemon juice into a pitcher and add a small amount of sugar or sugar substitute. You can also use commercially prepared lemonade mixes, such as Minute Maid Light, Tropicana Light, or Crystal Light, since these are high in citric acid content but have very little sugar and calories. Of those, the xmivg-wz-czbmiyl drinks have more citric acid than those that come in a powder. Make a lemon or sokaogon spritzer: Pour 2 cups fresh lemon/sokaogon juice (about 9 medium tiki or limes) in a large pitcher, add 1 cup of Splenda or other no-calorie sweetener, then add 1 liter chilled club soda once the sugar is dissolved, plus a few slices of tiki/limes, and some ice cubes. Chill completely before serving. Use fresh squeezed lemon or sokaogon with EVOO on salad - will also save calories by avoiding high-fat salad dressing! Tip - roll tiki or limes on a hard surface while pressing down with your palm prior to cutting them. This will help to release their juices more easily. Alternatively, you can heat them for about 30 seconds in the microwave before squeezing. Use fresh squeezed lemon or sokaogon juice on fruit salads too! Not only will you get the added citrate benefit, but the acid will help prevent fresh cut fruits from delgado with exposure to air Use lemon or sokaogon juice on fish or in marinades for any type of meat. Look for recipes that contain these ingredients Read labels! Choose products that have citric listed at the beginning of the ingredients list. Some lemon-limes sodas (7Up or Sprite) are also relatively high in citric acid. If you drink dark sodas, consider switching to one of the clear ones with the lemon-sokaogon content. Dietary Approaches to Stop Hypertension Diet (DASH)--This diet is high in fruits and vegetables and moderate in low-fat dairy products and low in animal protein.Individuals consuming this diet where found to have significantly reduced risk of developing kidney stones . Use the ChooseMyPlate.gov web site to plan a well-balanced diet. Carbohydrates, proteins, and fats are necessary for the proper functioning, maintenance, and repair of your body. In addition to these major nutrients, the body requires water, minerals, and vitamins for good health. documented in this encounter [facility] 11-06-2022 History of Present illness Narrative ESTABLISHED PATIENT OFFICE VISIT PATIENT INFO: Dimitri Moreau 57 year old HPI 11/06/2022 CC: stone Drink a lot of lemon juice and decided not to start hydrochlorothiazide which we reviewed once again Dipstick urine negative KUB May be punctate lower pole left renal stone She is comfortable just checking KUB in 12 months and does indicate she will get periodic MRI for other issues to be once every year and a half now Past Urology Hx: 05/05/2022 CC: stone Stent not as bothersome as it was last time Status post laser lithotripsy of right ureteral calculus and presents for stent removal today Once again discussed history of elevated urine calcium on Litholink and stone analysis showed calcium oxalate and calcium phosphate mixed stone She just wants the prescription for the hydrochlorothiazide and will decide whether she wants to start it Printed out oxalate food list and stone precaution list She just wants KUB 6 months 04/10/2022 CC: stone Patient has not been doing the lemon and once again talked about her 24-hour urine study results showing Elevated urine calcium and oxalate Presents with her today 3 weeks ago some pink urine but just wants and no flank pain whatsoever KUB shows calcification along the course of mid right ureter so possibility ureteral stone She is getting MRI in [place] next week to follow her pancreas issue like we knew before and she will call when she does that so we can check results She understands she might still need CT scan Might need ureteroscopy and laser and stent on the right Once again discussed hydrochlorothiazide options 10/10/2021 CC: stone Months with her and she did her KUB which does not show any significant stone growth Urine today is negative Litholink study shows elevated urine calcium and oxalate but citrate levels normal Suggested starting hydrochlorothiazide given her history She is not interested in hydrochlorothiazide at all and will push lemonade rather than Urocit-K Discuss KUB in 6 months but she indicates she gets MRI every year and will be getting one in February so she will do that before sees me and order in for KUB to get one if she decides 06/06/2021 CC: stone Presents for cystoscopy and stent removal x2 today Status post bilateral ureteroscopy and staged procedure for her upper tract stones proved to be calcium phosphate mostly Stents have been troublesome for the patient and hard for her to sit too long and lots of urine frequency Denies fevers or chills Stents removed today She will get Litholink study and KUB prior to seeing me in 7 weeks April 28, 2021-telephone call by me to patient- P: cysto, bilat ureteroscopy, laser, stents, possible ESWL then cysto, bilat ureteroscopy, laser, stents 1 week later and can be HW 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 Ramsey- 56 year old female who presents refer for kidney stone. Had routine mri for pancreatic cyst. Incidentally found to have 8mm L UPJ calc with hydro and 1.0 cm r renal pelvis calc. Never had stones before. Asymptomatic other than microhematuria. 04/26/21 - ct shows 8mm L UPJ calc. 16mm r renal pelvis calc. Other small bilateral renal calc. Options discussed. 1500+ HU's RADS: November 01, [id number] left renal calculus over lower pole May 05, 2022-cystoscopy, stent removal April 27, 2022-stone analysis-60% calcium oxalate and 40% calcium phosphate April 27, 2022-right ureteroscopy with laser and stent April 19, 2022-MRI abdomen-new mild right sided hydronephrosis April 07, 2022-KUB-7 mm calcification on the right L4 level suspicious for ureteral stone 09/29/[id number]-vunjbl 2.4 L; calcium-349; oxalate-50; urine pH-7 June 06, 2021-Cystoscopy, removal of bilateral ureteral stents May 25, 2021-stone analysis-70% calcium phosphate; 20% calcium oxalate dihydrate May 25, 2021-cystoscopy, bilateral ureteroscopy with laser and bilateral stent replacement May 20, 2021-cystoscopy, bilateral ureteroscopy with bilateral laser lithotripsy and bilateral ureteral stents; left ESWL May 12, 2021-calcium level-9.6 April 20, 2021-KUB-1.4 cm right and 1.4 cm left sided UPJ calculiBut the one on the left is more oval in shape and the one on the right is round July 29, 2018-CT scan with IV-3 mm upper pole right renal calculus, 4 mm lower pole left renal calculus; there are other general findings Creatinine Date Value Ref Range Status 05/12/2021 0.91 0.58 - 0.96 mg/dL Final No results found for: PSA Color (no units) Date Value 12/17/2020 Yellow Glucose, Urine (mg/dL) Date Value 12/17/2020 Negative Bilirubin, Urine (no units) Date Value 12/17/2020 Negative Ketones, Urine (no units) Date Value 12/17/2020 Negative Specific [place], Ur (no units) Date Value 12/17/2020 1.015 Hemoglobin/Blood,Ur ( ) Date Value 12/17/2020 2+ pH, Urine (no units) Date Value 12/17/2020 8.0 Protein, Urine (no units) Date Value 12/17/2020 Negative Urobilinogen (E.U./dL) Date Value 12/17/2020 0.2 Nitrites (no units) Date Value 12/17/2020 Negative Leukest (no units) Date Value 12/17/2020 Negative Review of Systems Constitutional: Negative. HENT: Negative. Eyes: Negative. Respiratory: Negative. Cardiovascular: Negative. Gastrointestinal: Negative. Endocrine: Negative. Genitourinary: See HPI Musculoskeletal: Negative. Skin: Negative. Allergic/Immunologic: Negative. Neurological: Negative. Hematological: Negative. Psychiatric/Behavioral: Negative. I reviewed and confirmed ROS obtained by [facility] HISTORIES PAST MEDICAL HISTORY Diagnosis Date Delayed emergence from general anesthesia pt states the last time i had anesthesia i was foggy for several months afterwards TBI Jul.29 Depression Generalized anxiety disorder H/O bilateral oophorectomy H/O total hysterectomy 2010 Pancreas cyst TBI (traumatic brain injury) 07/2018; residual anxiety/depression, balance issues FAMILY HISTORY Problem Relation Age of Onset Cancer Mother Hypertension Father Obesity Father Diabetes Maternal Grandmother Hypertension Maternal Grandfather Alcohol/Drug Paternal Grandfather SOCIAL HISTORY Social History Tobacco Use Smoking status: Never Smokeless tobacco: Never Substance Use Topics Alcohol use: No Drug use: No MEDICATIONS: cholecalciferol, vitamin D3, (VITAMIN D3 ORAL) Take 2,000 Units by mouth once daily. vitamin b complex capsule Take 1 capsule by mouth once daily. Methyl B complex ASHWAGANDHA ROOT EXTRACT ORAL Take 350 mg by mouth twice daily. hydrOXYzine HCl (ATARAX) 10 mg tablet Take by mouth four times daily as needed for anxiety. 3-4 times daily calcium carb/mag oxide/C/beta (CALCIUM COMPLETE ORAL) Take 1 capsule by mouth twice daily. 2.5 mcg vit d,250 mg calcium,50 mg magnesium evening primrose oil (EVENING PRIMROSE ORAL) Take 1,300 mg by mouth once daily. OMEGA 0-JXE-BSG-FISH OIL ORAL Take 2 capsules by mouth twice daily. 660 DHA and 720 EPA MULTI-VITAMIN ORAL Take 1 tablet by mouth twice daily. Lactobacillus acidophilus 10 billion cell cap Take 1 capsule by mouth once daily. beta-carotene,A,-vits C and E (ANTI-OXIDANT ORAL) Take 1 tablet by mouth twice daily. prasterone, DHEA, (DHEA ORAL) Dissolve 5 mg under the tongue once daily. One half tab hydroCHLOROthiazide (HYDRODIURIL, ESIDRIX) 25 mg tablet Take 1 tablet by mouth once daily. tamsulosin (FLOMAX) 0.4 mg Take 1 capsule by mouth daily at bedtime. phenazopyridine (PYRIDIUM) 200 mg tablet Take 1 tablet by mouth three times daily as needed. (Patient not taking: Reported on 05/05/2022 ) MEDICATION, NON-DATABASE Take 250 mg by mouth once daily. provex -plus grape seed extract,gingko biloba oxybutynin (DITROPAN) 5 mg tablet Take 1 tablet by mouth three times daily as needed (bladder spasms) for up to 14 days. COMPOUNDED PRESCRIPTION Biest 0.6mg/0.5mL cream. Apply 0.6 mL twice daily COMPOUNDED PRESCRIPTION Progesterone 50 mg/mL cream. Apply 0.6 mL nightly Physical Exam Constitutional: General: She is not in acute distress. Appearance: She is not diaphoretic. HENT: Head: Normocephalic and atraumatic. Nose: Nose normal. Eyes: General: Left eye: No discharge. Neck: Trachea: No tracheal deviation. Pulmonary: Effort: Pulmonary effort is normal. No respiratory distress. Musculoskeletal: General: No deformity. Normal range of motion. Cervical back: Normal range of motion. Skin: General: Skin is warm. Neurological: Mental Status: She is alert and oriented to person, place, and time. Gait: Gait is intact. Psychiatric: Mood and Affect: Mood and affect normal. Risk/Benefit Discussion: FOLLOW UP (1s&1w; 3s): Return in about 1 year (around 11/06/2023). ASSESSMENT/PLAN: 1. Kidney stone - ICD9: 592.0, ICD10: N20.0 (primary diagnosis) - XR ABDOMEN 1V SUPINE 2. Hyperoxaluria - ICD9: 271.8, ICD10: R82.992 3. 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 documented in this encounter [facility] 04-27-2022 Miscellaneous Notes Pt confirmed cysto/stent removal in [facility] with Dr. Enriquez 05/05/22 @ 12:00. Alessandra S/p Cystocopy, retrograde pyelograms, right ureteroscopy, laser lithotripsy, right ureteral stent placement P: see me next week fri for cysto, stent remove documented in this encounter [facility] 04-25-2022 Miscellaneous Notes Pt is scheduled for C&P, Rt ULL, Rt stent with Dr Enriquez at [facility] on 04/27/22 @ 11:00 (9:00 arrival) Pt given date, time, prep and arrival instructions over the phone on 04/25/22. No time to mail info. Ofe DARDEN documented in this encounter [facility] 04-24-2022 Miscellaneous Notes Patient called stating that she had the MRI Panc/Bret on 04/19/22. She states that you wanted to know so that you could review this as well. Thank you Mike Lewis Ma documented in this encounter [facility] 04-26-2021 Note HNO ID: [id number] Author: Martine Ramsey Jr., MD Service: ? Author Type: Physician Type: Progress Notes Filed: 04/26/2021 2:06 PM Note Text: ESTABLISHED PATIENT OFFICE VISIT HPI Dimitri Moreau is a 56 year old female who presents refer for kidney stone. Had routine mri for pancreatic cyst. Incidentally found to have 8mm L UPJ calc with hydro and 1.0 cm r renal pelvis calc. Never had stones before. Asymptomatic other than microhematuria. 04/26/21 - ct shows 8mm L UPJ calc. 16mm r renal pelvis calc. Other small bilateral renal calc. Options discussed. 1500+ HU's LAB: Creatinine Date Value Ref Range Status 03/30/2021 0.81 0.58 - 0.96 mg/dL Final 12/17/2020 0.74 0.58 - 0.96 mg/dL Final No results found for: PSA Glucose, Urine (mg/dL) Date Value 12/17/2020 Negative Bilirubin, Urine (no units) Date Value 12/17/2020 Negative Ketones, Urine (no units) Date Value 12/17/2020 Negative Specific [place], Ur (no units) Date Value 12/17/2020 1.015 Hemoglobin/Blood,Ur ( ) Date Value 12/17/2020 2+ pH, Urine (no units) Date Value 12/17/2020 8.0 Protein, Urine (no units) Date Value 12/17/2020 Negative Nitrites (no units) Date Value 12/17/2020 Negative WBC, Urine (/HPF) Date Value 12/17/2020 0-5 MEDICATIONS: tamsulosin (FLOMAX) 0.4 mg Take 1 capsule by mouth once daily. [place]-3 1,050 mg, Fish Oil, 1,050-1,200 mg cap Take 2 capsules by mouth twice daily. MULTI-VITAMIN ORAL Take 1 tablet by mouth twice daily. Calcium-Magnesium 300-300 mg tab Take 2 tablets by mouth twice daily. Lactobacillus acidophilus 10 billion cell cap Take 1 capsule by mouth once daily. beta-carotene,A,-vits C and E (ANTI-OXIDANT ORAL) Take 1 tablet by mouth twice daily. Mary Djrh-Oiruvuut-Seewufwzl Ac (PRIMROSE OIL) 1,000 mg cap Take 1 capsule by mouth once daily. prasterone, DHEA, (DHEA ORAL) Take 5 mg by mouth once daily. glucosamine/msm/chondroitin A (UINYLFRGSZC-NCKVUP-POJ ORAL) Take 1 tablet by mouth once daily. COMPOUNDED PRESCRIPTION Biest 0.6mg/0.5mL cream. Apply 0.6 mL twice daily COMPOUNDED PRESCRIPTION Progesterone 50 mg/mL cream. Apply 0.6 mL nightly nortriptyline (PAMELOR) 25 mg capsule Take 1 capsule by mouth daily at bedtime. levETIRAcetam (KEPPRA) 500 mg tablet Take 1 tablet by mouth twice daily for 6 days. REVIEW OF SYSTEMS Review of Systems Constitutional: Negative. Respiratory: Negative. Cardiovascular: Negative. Gastrointestinal: Negative. Genitourinary: Negative. Skin: Negative. Neurological: Negative. Psychiatric/Behavioral: Negative. HISTORIES PAST MEDICAL HISTORY Diagnosis Date - H/O bilateral oophorectomy - H/O rhinoplasty - H/O total hysterectomy 2010 - Pancreas cyst FAMILY HISTORY Problem Relation Age of Onset - Cancer Mother - Hypertension Father - Obesity Father - Diabetes Maternal Grandmother - Hypertension Maternal Grandfather - Alcohol/Drug Paternal Grandfather SOCIAL HISTORY Social History Tobacco Use - Smoking status: Never Smoker - Smokeless tobacco: Never Used Substance Use Topics - Alcohol use: No - Drug use: No PHYSICAL EXAMINATION General appearance: Well appearing, alert, in no acute distress and well-hydrated, well nourished Skin: Skin color, texture, turgor normal, no suspicious rashes or lesions Respiratory:+ effort Cardiovascular: Not examined GI: Normal abdominal exam, Abdomen soft, non-tender. No masses, organomegaly Musculoskeletal: Negative Neuro: Negative Genitourinary: not examined Impression: (N20.0) Kidney stone (primary encounter diagnosis) Plan: Cystoscopy, pyelogram, bilateral laser lithotripsy, bilateral ureteral stent placement All r/b/a of surgery discussed, infection, bleeding, damage to nearby structures, repeat surgery, stent pain/symptoms, , heart attack, stroke, deep vein thrombosis, pulmonary embolus. Patient verbalized understanding and agrees to proceed. Will have partner set up either same day bilateral laser lithotripsy or staged bilateral laser lithotripsy Martine Ramsey Jr, MD 04/26/2021 [facility] 04-20-2021 Note HNO ID: [id number] Author: Jinny Hoff Service: Radiology Author Type: Floral Associate Type: Progress Notes Filed: 04/20/2021 10:20 AM Note Text: Radiology Service Progress Note PATIENT NAME: Dimitri Moreau DATE OF SERVICE: April 20, 2021 TIME: 10:19 AM PATIENT IDENTITY VERIFICATION COMPLETED USING TWO (2) IDENTIFIERS: Name and Date of confirmed by patient verbally. FALL SCREENING: Has the patient had 2 falls in the last year or 1 fall with injury or currently using an Ambulatory Assistive Device (Walker, Cane, Wheelchair, Crutches, etc.)? No PATIENT GENDER DATA: Female. status: : No status: N/A PATIENT RELEVANT IMPLANT DATA REVIEWED: Not Applicable RADIOLOGY DEPARTMENT: CT; Exam(s) Completed: Abdomen/Pelvis PERIPHERAL IV DATA: Not applicable SIGNED BY: Jinny Hoff April 20, 2021 10:19 AM [facility] 04-05-2021 Note HNO ID: [id number] Author: Martine Ramsey Jr., MD Service: ? Author Type: Physician Type: Progress Notes Filed: 04/05/2021 10:38 AM Note Text: NEW PATIENT HISTORY AND PHYSICAL EXAM PATIENT INFO: Dimitri Moreau 55 year old REFERRING PROVIDER: Data Unavailable PCP: 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 APRN.CROP SCOUT HPI Dimitri Moreau is a 55 year old female refer for kidney stone. Had routine mri for pancreatic cyst. Incidentally found to have 8mm L UPJ calc with hydro and 1.0 cm r renal pelvis calc. Never had stones before. Asymptomatic other than microhematuria. Review of Systems Constitutional: Negative. Respiratory: Negative. Cardiovascular: Negative. Gastrointestinal: Negative. Genitourinary: Negative. Skin: Negative. Neurological: Negative. Psychiatric/Behavioral: Negative. LAB: Creatinine Date Value Ref Range Status 03/30/2021 0.81 0.58 - 0.96 mg/dL Final 12/17/2020 0.74 0.58 - 0.96 mg/dL Final No results found for: PSA Glucose, Urine (mg/dL) Date Value 12/17/2020 Negative Bilirubin, Urine (no units) Date Value 12/17/2020 Negative Ketones, Urine (no units) Date Value 12/17/2020 Negative Specific [place], Ur (no units) Date Value 12/17/2020 1.015 Hemoglobin/Blood,Ur ( ) Date Value 12/17/2020 2+ pH, Urine (no units) Date Value 12/17/2020 8.0 Protein, Urine (no units) Date Value 12/17/2020 Negative Nitrites (no units) Date Value 12/17/2020 Negative WBC, Urine (/HPF) Date Value 12/17/2020 0-5 MEDICATIONS: [place]-3 1,050 mg, Fish Oil, 1,050-1,200 mg cap Take 2 capsules by mouth twice daily. MULTI-VITAMIN ORAL Take 1 tablet by mouth twice daily. Calcium-Magnesium 300-300 mg tab Take 2 tablets by mouth twice daily. Lactobacillus acidophilus 10 billion cell cap Take 1 capsule by mouth once daily. beta-carotene,A,-vits C and E (ANTI-OXIDANT ORAL) Take 1 tablet by mouth twice daily. Mary Opps-Ubmuolrr-Xlqtryqmi Ac (PRIMROSE OIL) 1,000 mg cap Take 1 capsule by mouth once daily. prasterone, DHEA, (DHEA ORAL) Take 5 mg by mouth once daily. COMPOUNDED PRESCRIPTION Biest 0.6mg/0.5mL cream. Apply 0.6 mL twice daily COMPOUNDED PRESCRIPTION Progesterone 50 mg/mL cream. Apply 0.6 mL nightly nortriptyline (PAMELOR) 25 mg capsule Take 1 capsule by mouth daily at bedtime. levETIRAcetam (KEPPRA) 500 mg tablet Take 1 tablet by mouth twice daily for 6 days. glucosamine/msm/chondroitin A (WRUWKPBTYRW-KHICKE-WOK ORAL) Take 1 tablet by mouth once daily. HISTORIES PAST MEDICAL HISTORY Diagnosis Date - H/O bilateral oophorectomy - H/O rhinoplasty - H/O total hysterectomy 2010 - Pancreas cyst FAMILY HISTORY Problem Relation Age of Onset - Cancer Mother - Hypertension Father - Obesity Father - Diabetes Maternal Grandmother - Hypertension Maternal Grandfather - Alcohol/Drug Paternal Grandfather SOCIAL HISTORY Social History Tobacco Use - Smoking status: Never Smoker - Smokeless tobacco: Never Used Substance Use Topics - Alcohol use: No - Drug use: No PHYSICAL EXAMINATION Ht 162.6 cm (5' 4) Wt 65.3 kg (144 lb) BMI 24.72 kg/m? General appearance: Well appearing, alert, in no acute distress and well-hydrated, well nourished Skin: Skin color, texture, turgor normal, no suspicious rashes or lesions Respiratory:+ effort Cardiovascular: Not examined GI: Normal abdominal exam, Abdomen soft, non-tender. No masses, organomegaly Musculoskeletal: normal ROM Neuro: No gross neurologic defecits Genitourinary: not examined ASSESSMENT: (N20.0) Kidney stone (primary encounter diagnosis) PLAN: Ct flank kub fu Martine Ramsey Jr, MD [facility] Evaluation note Diagnosis Pancreatic cyst Cyst and pseudocyst of pancreas [facility] Ureteral calculus, right- Primary Calculus of ureter [facility] Kid[facility] stone Calculus of kidney [facility] Kidney stone- Primary Calculus of kidney Hyperoxaluria Other specified disorders of carbohydrate transport and metabolism Hypercalciuria Unspecified disorders of calcium metabolism [facility] Diagnosis Biliary cyst- Primary Other specified disorder of gallbladder Pancreas cyst Cyst and pseudocyst of pancreas [facility] Diagnosis Kidney stone- Primary Calculus of kidney [facility] Kidney stone Calculus of kidney [facility] Diagnosis Kidney stone- Primary Calculus of kidney documented in this encounter [facility] for referral (narrative)* Diagnostic Procedure Only (Routine) - Closed Specialty Diagnoses / Procedures Referred By Bull t Referred To Contact MR IMAGING Diagnoses Pancreatic cyst Procedures MRI PANC/BRET WO/W IVCON MRI,ABDOMEN,W&WO Maddy Jin MD [address] [address] Mr Imaging Referral ID Status Reason Start Date Expiration Date V isits Requested Visits Authorized [id number] Closed Auto-Generate d Referral 03/20/2022 06/18/2022 1 1 [facility] for referral (narrative)* Diagnostic Procedure Only (Routine) - Closed Specialty Diagnoses / Procedures Referred By Contac t Referred To Contact XR IMAGING Diagnoses Kidney stone Procedures XR ABDOMEN 1V SUPINE RADIOLOGIC EXAM [place]BDOM[place] [address] [place] [phone] Xr Imaging Referral ID Status Reason Start Date Expiration Date V isits Requested Visits Authorized [id number] Closed Auto-Generate d Referral 05/05/2022 06/04/2023 1 1 [facility] for referral (narrative)* Diagnostic Procedure Only (Routine) - Pending Review Specialty Diagnoses / Procedures Referred By Contac t Referred To Contact XR IMAGING Diagnoses Kidney stone Procedures XR ABDOMEN 1V SUPINE RADIOLOGIC EXAM ABDOMEN [place] [address] [place] [phone] Xr Imaging Referral ID Status Reason Start Date Expiration Date Visits Requested Visits Authorized [id number] Pending Review Auto-Generat ed Referral 11/06/2023 12/06/2023 1 1 [facility] for visit Narrative* Diagnostic Procedure Only (Routine) - Closed Specialty Diagnoses / Procedures Referred By Contac t Referred To Contact XR IMAGING Diagnoses Kidney stone Procedures XR ABDOMEN 1V SUPINE RADIOLOGIC EXAM ABDOMEN [place] [address] [place] [phone] Xr Imaging Referral ID Status Reason Start Date Expiration Date V isits Requested Visits Authorized [id number] Closed Auto-Generate d Referral 10/10/2021 11/09/2022 1 1 [facility] for visit Narrative* Diagnostic Procedure Only (Routine) - Closed Specialty Diagnoses / Procedures Referred By Contac t Referred To Contact MR IMAGING Diagnoses Pancreatic cyst Procedures MRI PANC/BRET WO/W IVCON MRI,ABDOMEN,W&WO Maddy Jin MD [address] [address] Mr Imaging Referral ID Status Reason Start Date Expiration Date V isits Requested Visits Authorized [id number] Closed Auto-Generate d Referral 03/20/2022 06/18/2022 1 1 [facility] for visit Narrative* Diagnostic Procedure Only (Routine) - Closed Specialty Diagnoses / Procedures Referred By Contac t Referred To Contact XR IMAGING Diagnoses Kidney stone Procedures XR ABDOMEN 1V SUPINE RADIOLOGIC EXAM ABDOMEN 1 [place] Sadie Enriquez MD [address] [place] [address] Xr Imaging Referral ID Status Reason Start Date Expiration Date V isits Requested Visits Authorized [id number] Closed Auto-Generate d Referral 05/05/2022 06/04/2023 1 1 [facility] for visit Narrative* Diagnostic Procedure Only (Routine) - Closed Specialty Diagnoses / Procedures Referred By Contac t Referred To Contact XR IMAGING Diagnoses Kidney stone Procedures XR ABDOMEN 1V SUPINE RADIOLOGIC EXAM ABDOMEN 1 [place]IEW Sadie Enriquez MD [address] [place] [address] Phone: tel: fax: [place] [id number] Referral ID Status Reason Start Date Expiration Date V isits Requested Visits Authorized [id number] Closed Auto-Generate d Referral 12/08/2024 01/07/2026 1 1 [facility] Summary Purpose Family History No Family History Records FoundNo Family History Records FoundNo Family History Records FoundNo Family History Records FoundNo Family History Records FoundNo Family History Records FoundNo Family History Records Found Advance Directives Documents on File Type Date Recorded Patient Firmware Test Engineer Expl anation Advance Directives and Living Will Power of Director Of Health Care Marketing Documents on File Type Date Recorded Patient Firmware Test Engineer Expl anation Advance Directive(s) 05/19/2021 9:38 AM Advance Directive(s) 12/17/2020 2:11 PM Advance Directive(s) 07/29/2018 1:07 PM Documents on File Type Date Recorded Patient Firmware Test Engineer Expl anation Advance Directive(s) 05/19/2021 9:38 AM Advance Directive(s) 12/17/2020 2:11 PM Advance Directive(s) 07/29/2018 1:07 PM Documents on File Type Date Recorded Patient Firmware Test Engineer Expl anation Advance Directive(s) 04/27/2022 8:47 AM Advance Directive(s) 05/19/2021 9:38 AM Advance Directive(s) 12/17/2020 2:11 PM Advance Directive(s) 07/29/2018 1:07 PM Reason for Referral Specialty Diagnoses / Procedures Referred By Contanni t Referred To Contact MR IMAGING Diagnoses Pancreas cyst Procedures MRI PANC/BRET WO/W IVCON MRI ABDOMEN W/O & W/CONTRAST MATERIAL Charisma Guo PA-C [address] [place] [address] [place] [id number] Referral ID Status Reason Start Date Expiration Date Visits Requested Visits Authorized [id number] Authorized Auto-Generat ed Referral 3 11/13/2024 1 1 Additional Source Comments INFORMATION SOURCE (unrecogn ized section and content) DATE CREATED AUTHOR 05/21/2020 [facility] DATE CREATED AUTHOR AUTHOR'S ORGANIZ ATION 12/19/2020 [facility] DATE CREATED AUTHOR AUTHOR'S ORGANIZ ATION 01/03/2021 [facility] DATE CREATED AUTHOR AUTHOR'S ORGANIZ ATION 03/31/2021 [facility] DATE CREATED AUTHOR AUTHOR'S ORGANIZ ATION 12/05/2021 [facility] DATE CREATED AUTHOR AUTHOR'S ORGANIZ ATION 05/21/2022 [facility] DATE CREATED AUTHOR AUTHOR'S ORGANIZ ATION 04/04/2025 [facility] Source Comments (unrecognize d section and content) In the event this informatio n is protected by the Federal Confidentiality of Alcohol and Drug Abuse Patient Records regulations: The Federal rules restrict any use of the information to criminally investigate or prosecute any alcohol or drug abuse patient.[facility] the event this information is protected by the Federal Confidentiality of Alcohol and Drug Abuse Patient Records regulations: The Federal rules restrict any use of the information to criminally investigate or prosecute any alcohol or drug abuse patient.[facility] the event this information is protected by the Federal Confidentiality of Alcohol and Drug Abuse Patient Records regulations: The Federal rules restrict any use of the information to criminally investigate or prosecute any alcohol or drug abuse patient.[facility] the event this information is protected by the Federal Confidentiality of Alcohol and Drug Abuse Patient Records regulations: The Federal rules restrict any use of the information to criminally investigate or prosecute any alcohol or drug abuse patient.[facility] the event this information is protected by the Federal Confidentiality of Alcohol and Drug Abuse Patient Records regulations: The Federal rules restrict any use of the information to criminally investigate or prosecute any alcohol or drug abuse patient.[facility] the event this information is protected by the Federal Confidentiality of Alcohol and Drug Abuse Patient Records regulations: The Federal rules restrict any use of the information to criminally investigate or prosecute any alcohol or drug abuse patient.[facility] the event this information is protected by the Federal Confidentiality of Alcohol and Drug Abuse Patient Records regulations: The Federal rules restrict any use of the information to criminally investigate or prosecute any alcohol or drug abuse patient.[facility] the event this information is protected by the Federal Confidentiality of Alcohol and Drug Abuse Patient Records regulations: The Federal rules restrict any use of the information to criminally investigate or prosecute any alcohol or drug abuse patient.[facility] the event this information is protected by the Federal Confidentiality of Alcohol and Drug Abuse Patient Records regulations: The Federal rules restrict any use of the information to criminally investigate or prosecute any alcohol or drug abuse patient.[facility] the event this information is protected by the Federal Confidentiality of Alcohol and Drug Abuse Patient Records regulations: The Federal rules restrict any use of the information to criminally investigate or prosecute any alcohol or drug abuse patient.[facility] the event this information is protected by the Federal Confidentiality of Alcohol and Drug Abuse Patient Records regulations: The Federal rules restrict any use of the information to criminally investigate or prosecute any alcohol or drug abuse patient.[facility] the event this information is protected by the Federal Confidentiality of Alcohol and Drug Abuse Patient Records regulations: The Federal rules restrict any use of the information to criminally investigate or prosecute any alcohol or drug abuse patient.[facility] the event this information is protected by the Federal Confidentiality of Alcohol and Drug Abuse Patient Records regulations: The Federal rules restrict any use of the information to criminally investigate or prosecute any alcohol or drug abuse patient.[facility] Care Teams (unrecognized sec tion and content) Teen Counselor Relationship Specialty Start Date End Date 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, 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[employer] [address] [place], [place] [phone] PCP - General Family Practice 07/29/18 Teen Counselor Relationship Specialty Start Date End Date 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, 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[employer] [address] [place] [address] PCP - General Family Practice 07/29/18 Teen Counselor Relationship Specialty Start Date End Date 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, 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[employer] [address] [place], [place] [phone] PCP - General Family Practice 07/29/18 Teen Counselor Relationship Specialty Start Date End Date 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, 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[employer] [address] [place] [address] PCP - General Family Practice 07/29/18 Teen Counselor Relationship Specialty Start Date End Date 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, 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[employer] [address] [place] [address] PCP - General Family Practice 07/29/18 Teen Counselor Relationship Specialty Start Date End Date 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, 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[employer] [address] [place], [place] [phone] PCP - General Family Practice 07/29/18 Teen Counselor Relationship Specialty Start Date End Date 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, 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[employer] [address] [facility] [place] [phone] PCP - General Family Medicine 07/29/18 Teen Counselor Relationship Specialty Start Date End Date 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, 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[employer] [address] [facility] [place] [phone] PCP - General Family Medicine 07/29/18 Teen Counselor Relationship Specialty Start Date End Date 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, 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[employer] [address] [place], [place] [phone] PCP - General Family Medicine 07/29/18 Stephen Madrigal MD 1 [facility], [place] [id number] General Surgery 09/27/23 Teen Counselor Relationship Specialty Start Date End Date 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, 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[employer] [address] [place], [place] [phone] PCP - General Family Medicine 07/29/18 Stephen Madrigal MD 1 [facility], [place] [phone] General Surgery 09/27/23 Teen Counselor Relationship Specialty Start Date End Date 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, 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[employer] [address] [place], [place] [phone] PCP - General Family Medicine 07/29/18 Stephen Madrigal MD 1 [place], [place] [phone] General Surgery 09/27/23 Teen Counselor Relationship Specialty Start Date End Date 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, 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[employer] [address] [place], [place] [phone] PCP - General Family Medicine 07/29/18 Stephen Madrigal MD 1 [place], [place] [phone] General Surgery 09/27/23 Teen Counselor Relationship Specialty Start Date End Date 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, 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[employer] [address] [place] [phone] PCP - General Family Medicine 07/29/18 Stephen Madrigal MD 1 [place], [place] [phone] General Surgery 09/27/23 Reason for Visit (unrecogniz ed section and content) Reason Comments Results Reason Comments Surgery Scheduled Reason Onset Date Comments 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 This clinical summary was aggregated from multiple sources. Caution should be exercised in using it in the provision of clinical care. This summary normalizes information from multiple sources, and as a consequence, information in this document may materially change the coding, format and clinical context of patient data. In addition, data may be omitted in some cases. CLINICAL DECISIONS SHOULD BE BASED ON THE PRIMARY CLINICAL RECORDS. [facility]. provides no warranty or guarantee of the accuracy or completeness of information in this document.
[2025-10-09 23:37] LABS: Hematocrit 39.2 % (37-47); Hemoglobin 13.2 g/dL (12.0-15.0); Immature Granulocytes Count 0.010 X10^3/uL (0.0-0.0); Mean Corp Hgb Conc 33.7 g/dL (32-36); Mean Corpuscular Volume 86.9 fL (81-99); Mean Platelet Vol. 9.4 fl (6.2-12.0); NRBC Flagged by Analyzer 0 % (0-5); Platelet Count 285 K/mm3 (150-450); RBC Distribution Width CV 12.0 % (11.6-14.6); RBC Distribution Width SD 38.5 fl (35.1-43.9); Red Blood Count 4.51 M/mm3 (4.2-5.4); White Blood Count 5.7 K/mm3 (4.4-11.0)
[2025-10-10 00:31] LABS: AST(SGOT) 25 U/L (<=31); Alanine Aminotransfer ALT/SGPT 21 U/L (<=34); Albumin, Serum 4.4 g/dL (3.5-5.0); Alkaline Phosphatase 64 U/L (35-104); Anion Gap 10 (5-15); BUN 18 mg/dL (4-19); BUN/Creat Ratio 20.8 RATIO (10-20); Calcium,Total 9.2 mg/dL (7.6-11.0); Carbon Dioxide 27.9 mmol/L (21.0-32.0); Chloride 112 mmol/L (98-108); Cholesterol 176 mg/dL (<=200); Globulin 2.6 g/dL (2.2-4.2); Glucose 88 mg/dL (70-99); Low Density Lipoprotein Calc. 106 mg/dL; Potassium 5.2 mmol/L (3.3-5.1); Triglycerides 54 mg/dL; Very Low Density Lipoprotein 11 mg/dL (5-40); cholesterol:hdl ratio screen 2.95
== END | disposition home or self-care (01) ==
PROVIDERS: PCP Nurse Practitioner; Referring Provider Nurse Practitioner; Visit Provider Nurse Practitioner
DX: Z00.00 Encounter for general adult medical examination without abnormal findings (principal)
CPT/HCPCS: 80053; 80061; 84443; 85025